=== PATIENT | female | born 1985 | race African-American/Black ===

== ENCOUNTER 2022-12-25 19:46 | Emergency (ER) | payer MEDICAID, OTHER, SELFPAY ==
[2022-12-25 20:08] VITALS: BP 116/69; PULSE 98; RESP 16; TEMP 37.9; O2SAT 98; BMI 23.6
--- NOTE | 2022-12-25 20:10 | ED_ITS ---
HPI - Skin/Abscess/Foreign Bdy General Chief complaint: Skin/Abscess/Foreign Body Stated complaint: cyst on back Time Seen by Provider: 12/25/22 20:13 Source: patient Mode of arrival: ambulatory Limitations: no limitations History of Present Illness HPI narrative: 37 yo female with no medical history here with painful growth to left upper back x years with no known injury or trauma. NO fevers, chills, redness, warmth, drainage Review of Systems Review of Systems: Yes all other systems are reviewed and are negative Constitutional: Constitutional: Reports no additional constitutional complaints, Denies body ache(s), Denies chills, Denies fever(s), Denies headache(s) and Denies weakness Eyes: Eyes: Reports no additional eye complaints and Denies change in vision ENT: Reports system reviewed and no additional complaints, except as documented, Denies dizziness, Denies headache(s), Denies nasal congestion, Denies nasal discharge and Denies neck pain Cardiovascular: Cardiovascular: Reports no additional cardiovascular complaints, Denies chest pain, Denies leg edema and Denies dyspnea Respiratory: Respiratory: Reports no additional respiratory complaints, Denies cough and Denies dyspnea Gastrointestinal: Gastrointestinal: Reports no additional gastrointestinal complaints, Denies abdominal pain, Denies diarrhea, Denies nausea and Denies vomiting Genitourinary: Genitourinary: Reports no additional female genitourinary complaints and Denies urinary incontinence Musculoskeletal: Musculoskeletal: Reports no additional musculoskeletal complaints, Denies back pain, Denies arthralgias, Denies joint swelling, Denies neck pain, Denies numbness and Denies tingling Integumentary/Breasts: Skin/Breast: Reports system reviewed and no additional complaints, except as docu and Denies rash Neurologic: Reports system reviewed and no additional complaints, except as documented, Denies dizziness, Denies headache(s), Denies numbness, Denies tingling and Denies weakness [facility] Past Medical History Attestation statement: The following information was validated with the patient. Source: old records reviewed and nursing notes reviewed Physical Exam Vital Signs: Vital Signs: Last Vital Signs Temp 100.2 F 12/25/22 20:08 Pulse 98 12/25/22 20:08 Resp 16 12/25/22 20:08 BP 116/69 12/25/22 20:08 Pulse Ox 98 12/25/22 20:08 O2 Del Method Room Air 12/25/22 20:08 BMI result Body Mass Index 23.6 Const: General: cooperative, healthy appearing, comfortable and no acute distress Orientation/consciousness: patient oriented x3 Limitations: no limitations HEENT: Head: Yes normal to inspection Ears: hearing grossly normal bilaterally Eyes: General: appearance normal, both eyes and all related structures Neck: Neck: Yes normal visual inspection Chest: Chest palpation & inspection: normal inspection of the chest Resp: Effort & Inspection: normal respiratory effort Back/Spine/Pelvis: Other: To the left upper back there is a keloid present with no evidence of erythema, warmth, drainage Neuro: General: patient oriented x3 and moves all extremities Cognition (Neuro): normal cognition Gait exam (Neuro): Normal gait present Medical Decision Making Medical Decision Making MDM Narrative: 37 yo female with no medical history here with painful growth to left upper back x years with no known injury or trauma. NO fevers, chills, redness, warmth, drainage Exam c/w with keloid, no s/s of infection Differential Diagnosis Differential Diagnoses: The differential diagnosis associated with the presentation includes keloid no evidence of cellulitis, abscess Prescription Management I considered prescription management with: Antibiotic no signs of infection necessitating antibiotics Discharge Plan Discharge Clinical Impression: Keloid Patient Disposition: Home, Self-Care Instructions: Normal Exam (ED) Additional Instructions: This is a keloid which is a overgrowth of scar tissue Take motrin or tylenol for pain as needed Establish insurance and a PCP to follow-up with Referrals: ED Physician,Generic [Physician] - 1 week
== END 2022-12-25 20:49 | disposition home or self-care (01) ==
LOC: HO.ED 20:37
PROVIDERS: Emergency Provider Student in an Organized Health Care Education/Training Program
DX: L91.0 Hypertrophic scar (principal)
CPT/HCPCS: 99282

== ENCOUNTER 2023-03-22 18:08 | Emergency (ER) | payer MEDICAID, OTHER, SELFPAY ==
--- NOTE | ~2023-03-22 | CT_ITS ---
EXAMINATION: CT ABDOMEN AND PELVIS WITHOUT CONTRAST CLINICAL INFORMATION: Upper abdomen pain COMPARISON: None available. TECHNIQUE: Multidetector volumetric imaging was performed from the superior aspect of the liver through the pubic symphysis. Sagittal and coronal reformatted images were obtained on the technologist's workstation. This CT examination was performed using dose optimization techniques as appropriate, variously including the following: *Automated exposure control *Adjustment of mA and/or kV according to patient size (this includes techniques or standardized protocols for targeted exams where dose is matched to indication/reason for exam; i.e. extremities or head) *Use of iterative reconstruction technique DLP: 1210 mGy-cm FINDINGS: LUNG BASES: No suspicious abnormality in the visualized lower chest LIVER, GALLBLADDER, AND BILIARY TREE: There are multiple coarse calcifications in the liver perhaps related to previous granulomatous disease. These do not require specific imaging follow-up there is no opaque gallstone. No biliary dilation. PANCREAS: No large peripancreatic collection. SPLEEN: No suspicious abnormality ADRENAL GLANDS: Within normal limits KIDNEYS AND URETERS: There is no dilation of the urinary collecting system on either side. No suspicious renal mass BLADDER: The bladder is not fully distended. No suspicious focal abnormality. GASTROINTESTINAL TRACT: There is no localized pericolonic fat stranding. No disproportionate small bowel distention. The stomach is not well distended. ABDOMINAL WALL: No significant hernia is appreciated. LYMPH NODES: There are no measurably enlarged abdominal or pelvic lymph nodes. There is no significant free intraperitoneal fluid. VASCULAR: There is no abdominal aortic aneurysm PELVIC VISCERA: Somewhat bulky uterus. No suspicious abnormality. OSSEOUS STRUCTURES: No suspicious abnormality CT/CT abdomen pelvis wo IV con IMPRESSION: Study performed without contrast. No evidence of bowel obstruction or abscess. No evidence of urinary or biliary dilation. Fleischner guidelines were followed.
[2023-03-22 18:16] VITALS: BP 117/64; BP 140/86; PULSE 77; PULSE 79; RESP 16; TEMP 36.7; O2SAT 100; O2SAT 97
[2023-03-22 18:33] VITALS: BP 117/64; PULSE 79; RESP 16; TEMP 36.7; O2SAT 97
[2023-03-22 18:38] LABS: MANUAL DIFF FLAG NO
[2023-03-22 18:55] LABS: Alanine Aminotransferase 16 U/L (0-31); Albumin Level 4.3 g/dL (3.5-5.0); Alkaline Phosphatase 56 U/L (39-117); Anion Gap 14 (12-20); Aspartate Amino Transferase 18 U/L (5-31); Basophils Percent Auto 0.7 % (0-2); Bilirubin Direct 0.1 mg/dL (0.0-0.5); Bilirubin Total 0.4 mg/dL (0.0-1.0); Blood Urea Nitrogen 11 mg/dL (9-16); Calcium 9.6 mg/dL (8.4-10.2); Carbon Dioxide 25 mmol/L (22-29); Chloride 106 mmol/L (96-108); Creatinine Clr Calc Pharmacy 92.6; Eosinophils Absolute Auto 0.3 X10*3/uL (0.0-0.4); Estimated Glomerular Filt Rate > 60; Glucose Random 96 mg/dL (60-115); Hematocrit 40.8 % (37.0-47.0); Hemoglobin 13.4 g/dl (12.0-16.0); Imm Gran Abs Auto 0.01 X10*3/uL (0.00-0.03); Imm Gran Pct Auto 0.2 % (0.0-0.4); Lipase 33 U/L (8-78); Lymphocytes Absolute Auto 2.6 X10*3/uL (1.2-4.9); Lymphocytes Percent Auto 45.7 % (20-40); Mean Corpuscular HGB Conc 32.8 g/dl (31.0-35.0); Mean Corpuscular Hemoglobin 26.4 pg (27.0-33.0); Mean Corpuscular Volume 80.3 fL (80.0-98.0); Mean Platelet Volume 10.7 fL (9.4-12.3); Monocytes Absolute Auto 0.5 X10*3/uL (0.1-1.2); Monocytes Percent Auto 8.2 % (2-11); Neutrophils Absolute Auto 2.2 x10*3/uL (2.0-8.3); Neutrophils Percent Auto 39.2 % (45-73); Platelet Count 296 X10*3/uL (160-400); Potassium 3.9 mmol/L (3.3-5.1); Red Blood Count 5.08 X10*6/uL (4.20-5.50); Red Cell Distribution Width 12.7 % (11.0-16.0); Sodium 141 mmol/L (135-145); White Blood Count 5.7 X10*3/uL (4.8-10.8)
--- NOTE | 2023-03-22 19:24 | ED.ABDPAIN ---
HPI - Abdominal Pain General Chief Complaint: Abdominal Pain Stated Complaint: abd pain since this morning Time Seen by Provider: 03/22/23 18:23 Source: patient Mode of arrival: ambulatory Limitations: no limitations History of Present Illness HPI narrative: Patient no significant past medical history history of upper abdominal pain last year when she was in [place] country earlier today patient had banana and after that pain is constant in epigastric area with no nausea or vomiting stabbing pain does have history of gastritis no acid reflux lately Related Data Previous Rx's Medication Instructions Recorded pantoprazole 40 mg tablet,delayed 40 mg PO DAILY #90 tabs 03/22/23 release (Protonix) sucralfate 1 gram tablet 1 g PO BID #60 tabs 03/22/23 Allergies Allergy/AdvReac Type Severity Reaction Status Date / Time No Known Allergies Allergy Unverified 03/22/23 18:23 Review of Systems Review of Systems Yes all other systems are reviewed and are negative PMFSH Social History Social History Smoked in Last 30 Days: No Use of substances other than those prescribed or required for medical reasons: No Advance Directives: No Advance Directives Information Provided: No Patient : No Physical Exam ED Vital Signs: Vital Signs - 24 hr 03/22/23 18:16 03/22/23 18:33 03/22/23 19:55 Temperature 98.1 F 98.1 F 97.9 F Pulse Rate 79 79 74 Respiratory Rate 16 16 Blood Pressure 117/64 117/64 131/85 Pulse Oximetry 97 97 98 Oxygen Delivery Method Room Air Room Air Room Air BMI result Body Mass Index 30.0 Appearance: Alert. Oriented X3. No acute distress. Eyes: PERRLA, No Nystagmus no icterus or pallor ENT: Pharynx normal. Oral Mucosa moist Neck: Normal inspection. Neck supple. CVS: Normal heart rate and rhythm. Pulses normal. Respiratory: No respiratory distress. Equal air entry bilateral, no wheezing/rales/rhonchi Abdomen: Soft and tenderness in epigastric area Bowel sounds are present, no mass palpable, no CVA tenderness Skin: Skin warm and dry. Normal skin color. Normal skin turgor. Extremities: No lower extremity edema. No calf tenderness Neuro: Oriented X 3. No motor deficit. Medical Decision Making Medical Decision Making MDM Narrative: Patient has epigastric pain etiology not very clear labs were stable bedside ultrasound done which which was negative for gallstones will get CT scan for persistent pain Differential Diagnosis Differential Diagnoses: The differential diagnosis associated with the presentation includes Gastritis/gallstones Lab Data MDM Lab Attestation statement: I reviewed the patient's lab results. 03/22/23 18:32 03/22/23 18:32 Labs: Lab Results 03/22/23 Range/Units 18:32 WBC 5.7 (4.8-10.8) X10*3/uL RBC 5.08 (4.20-5.50) X10*6/uL Hgb 13.4 (12.0-16.0) g/dl Hct 40.8 (37.0-47.0) % MCV 80.3 (80.0-98.0) fL MCH 26.4 L (27.0-33.0) pg MCHC 32.8 (31.0-35.0) g/dl RDW 12.7 (11.0-16.0) % Plt Count 296 (160-400) X10*3/uL MPV 10.7 (9.4-12.3) fL Immature Gran % (Auto) 0.2 (0.0-0.4) % Neut % (Auto) 39.2 L (45-73) % Lymph % (Auto) 45.7 H (20-40) % [place] % (Auto) 8.2 (2-11) % Eos % (Auto) 6.0 H (0-4) % Baso % (Auto) 0.7 (0-2) % Lymph # (Auto) 2.6 (1.2-4.9) X10*3/uL [place] # (Auto) 0.5 (0.1-1.2) X10*3/uL Eos # (Auto) 0.3 (0.0-0.4) X10*3/uL Baso # (Auto) 0.0 (0.0-0.2) X10*3/uL Abs Immat Gran (auto) 0.01 (0.00-0.03) X10*3/uL Absolute Neuts (auto) 2.2 (2.0-8.3) x10*3/uL Absolute Nucleated RBC 0.000 (0.0-0.012) X10*3/uL Nucleated RBC % (auto) 0.0 (0.0-0.2) /100WBC Sodium 141 (135-145) mmol/L Potassium 3.9 (3.3-5.1) mmol/L Chloride 106 (96-108) mmol/L Carbon Dioxide 25 (22-29) mmol/L Anion Gap 14 (12-20) BUN 11 (9-16) mg/dL Creatinine 0.77 (0.5-1.4) mg/dL Estim Creat Clear Calc 92.6 Estimated GFR > 60 Random Glucose 96 (60-115) mg/dL Calcium 9.6 (8.4-10.2) mg/dL Total Bilirubin 0.4 (0.0-1.0) mg/dL Direct Bilirubin 0.1 (0.0-0.5) mg/dL AST 18 (5-31) U/L ALT 16 (0-31) U/L Alkaline Phosphatase 56 (39-117) U/L Total Protein 8.0 (6.5-8.0) g/dL Albumin 4.3 (3.5-5.0) g/dL Lipase 33 (8-78) U/L Beta HCG, Quant < 2 mIU/mL Independent Interpretation I performed an independent interpretation of an: CT Scan Radiology Impression Discussion of test interpretation with radiology: I have reviewed the radiologist's reading. Radiologist Impression: [place] [id number] CT Scan Report Signed Patient: Arcelia Angel MR#: [id number] : 1985 Acct:[id number] Age/Sex: 37 / F ADM Date: 03/22/23 Loc: .ED Attending Dr: Ordering Physician: Juan Antonio Rosales MD Date of Service: 03/22/23 Procedure(s): CT abdomen pelvis wo IV con Accession Number(s): [id number] cc: Physician,Unknown ; Juan Antonio Rosales MD~ EXAMINATION: CT ABDOMEN AND PELVIS WITHOUT CONTRAST CLINICAL INFORMATION: Upper abdomen pain COMPARISON: None available. TECHNIQUE: Multidetector volumetric imaging was performed from the superior aspect of the liver through the pubic symphysis. Sagittal and coronal reformatted images were obtained on the technologist's workstation. This CT examination was performed using dose optimization techniques as appropriate, variously including the following: *Automated exposure control *Adjustment of mA and/or kV according to patient size (this includes techniques or standardized protocols for targeted exams where dose is matched to indication/reason for exam; i.e. extremities or head) *Use of iterative reconstruction technique DLP: 1210 mGy-cm FINDINGS: LUNG BASES: No suspicious abnormality in the visualized lower chest LIVER, GALLBLADDER, AND BILIARY TREE: There are multiple coarse calcifications in the liver perhaps related to previous granulomatous disease. These do not require specific imaging follow-up there is no opaque gallstone. No biliary dilation. PANCREAS: No large peripancreatic collection. SPLEEN: No suspicious abnormality ADRENAL GLANDS: Within normal limits KIDNEYS AND URETERS: There is no dilation of the urinary collecting system on either side. No suspicious renal mass BLADDER: The bladder is not fully distended. No suspicious focal abnormality. GASTROINTESTINAL TRACT: There is no localized pericolonic fat stranding. No disproportionate small bowel distention. The stomach is not well distended. ABDOMINAL WALL: No significant hernia is appreciated. LYMPH NODES: There are no measurably enlarged abdominal or pelvic lymph nodes. There is no significant free intraperitoneal fluid. VASCULAR: There is no abdominal aortic aneurysm PELVIC VISCERA: Somewhat bulky uterus. No suspicious abnormality. OSSEOUS STRUCTURES: No suspicious abnormality CT/CT abdomen pelvis wo IV con IMPRESSION: Study performed without contrast. No evidence of bowel obstruction or abscess. No evidence of urinary or biliary dilation. Fleischner guidelines were followed. Medications Administered Discontinued Medications Generic Name Dose Route Start Last Admin Trade Name Freq PRN Reason Stop Dose Admin Al Hydroxide/Mg Hydroxide 30 ml 03/22/23 19:31 03/22/23 19:50 Magnesium Hydrox/Alum Hydrox 30 Ml Oral.Susp PO 03/22/23 19:32 30 ml ONCE ONE Administration Famotidine 20 mg 03/22/23 19:35 03/22/23 19:50 Famotidine/Pf 20 Mg/2 Ml Vial IVPUSH 03/22/23 19:36 20 mg ONCE ONE Administration Ketorolac Tromethamine 30 mg 03/22/23 19:35 03/22/23 19:50 Ketorolac Tromethamine 30 Mg/Ml Vial IVPUSH 03/22/23 19:36 30 mg ONCE ONE Administration Lidocaine HCl 15 ml 03/22/23 19:32 03/22/23 19:50 Lidocaine Hcl Viscous 2 % 15 Ml Solution MUCOUS MEM 03/22/23 19:33 15 ml ONCE ONE Administration Discharge Plan Discharge Clinical Impression: Acute gastritis Patient Disposition: Home, Self-Care Instructions: Gastritis (ED) Additional Instructions: Drink plenty of fluids Avoid fried food Take medication as prescribed Follow with GI for further evaluation including endoscopy Prescriptions: New pantoprazole [Protonix] 40 mg tablet,delayed release (DR/EC) 40 mg PO DAILY Qty: 90 0RF sucralfate 1 gram tablet 1 g PO BID Qty: 60 0RF Interventions: ED Discharge Assessment Last Done: 03/22/23 23:32 Discharge Date/Time: 03/22/23 23:33
[2023-03-22] MEDS: Ketorolac Tromethamine 30 MG/ML VIAL IVPUSH (19:50)
[2023-03-22] MEDS: Magnesium Hydrox/Alum Hydrox 30 ML ORAL.SUSP PO (19:50)
[2023-03-22] MEDS: Famotidine/PF 20 MG/2 ML VIAL IVPUSH (19:50)
[2023-03-22] MEDS: Lidocaine HCl Viscous 2 % 15 ML SOLUTION MUCOUS MEM (19:50)
[2023-03-22 19:55] VITALS: BP 131/85; PULSE 74; TEMP 36.6; O2SAT 98
[2023-03-22 20:44] LABS: HCG Quantitative < 2 mIU/mL
== END 2023-03-22 23:33 | disposition home or self-care (01) ==
PROVIDERS: Emergency Provider Internal Medicine
DX: K29.70 Gastritis, unspecified, without bleeding (principal); R10.10 Upper abdominal pain, unspecified; R10.13 Epigastric pain
CPT/HCPCS: 36415; 74176; 80048; 80076; 83690; 84702; 85025; 96374; 96375; 99284; J1885

== ENCOUNTER 2023-05-10 22:17 | Emergency (ER) | payer MEDICAID, OTHER, SELFPAY ==
--- NOTE | 2023-05-10 | ECG_ITS ---
Test Reason : SYNCOPE Blood Pressure : / mmHG Vent. Rate : 093 BPM Atrial Rate : 093 BPM P-R Int : 154 ms QRS Dur : 066 ms QT Int : 346 ms P-R-T Axes : 042 -03 020 degrees QTc Int : 430 ms Normal sinus rhythm Minimal voltage criteria for LVH, may be normal variant ( R in aVL ) Borderline ECG No previous ECGs available Referred By: Generic ED Physician Electronically Signed By:Morro Dawson
--- NOTE | ~2023-05-10 | US_ITS ---
EXAMINATION: US OBSTETRICAL ULTRASOUND CLINICAL INFORMATION: Pelvic pain and fever with positive home test COMPARISON: None available. LMP: 03/23/2023. Gestational age by maternal dates is 6 weeks 6 days. Estimated date of delivery by maternal dates is 12/28/2023. TECHNIQUE: Both transabdominal and endovaginal scanning was performed FINDINGS: The uterus is enlarged and contains 3 large fibroids measuring 3.0 x 2.6 x 3.1 cm at the left fundus, 3.4 x 2.9 x 3.3 cm at the right fundus and 2.9 x 2.1 x 2.2 cm in the right mid uterus. A gestational sac is not seen seen. The endometrium measures 2.1 cm in thickness and appears homogeneous. MATERNAL ADNEXA: The right maternal ovary measures 3.9 x 2.3 x 2.9 cm. A 2.1 cm probable corpus luteal cyst is present. The left maternal ovary measures 3.8 x 1.6 x 1.7 cm and appears normal. There is no significant maternal adnexal mass. No maternal pelvic ascites. US/US OB pelvic and transvaginal IMPRESSION: No intrauterine is identified at this time. Correlation with beta hCG levels is recommended, as nonvisualization of a gestational sac could be due to an early stage of . Alternatively, lack of an intrauterine gestational sac may also be seen with missed or ectopic , although no adnexal mass is seen to strongly suggest ectopic . 3 large uterine fibroids are present. Short-term sonographic follow-up and serial beta hCG levels are recommended to assess for development of an intrauterine gestational sac.
[2023-05-10 22:26] VITALS: BP 117/79; PULSE 96; RESP 16; TEMP 37.8; O2SAT 100; BMI 27.8
--- NOTE | 2023-05-10 23:00 | PC.NURSE ---
Pt A&Ox3, brought in from triage in a stretcher after ? syncopal episode. Pt reports feeling weak, unable to tolerate PO intake and unable to sleep x 1 month. Pt reports BAILEY since yesterday. Reports she took a home test and it was positive.
[2023-05-10 23:02] LABS: COVID-19 Test Negative (Negative); IDNOW Serial# 16C4AD1C; IDNOW Serial# 55D5AD1C; Influenza A Negative (Negative); Influenza B2 Negative (Negative)
[2023-05-10 23:05] LABS: MANUAL DIFF FLAG NO
--- NOTE | 2023-05-10 23:06 | ED_ITS ---
HPI - General Adult General Chief complaint: General Medical Stated complaint: Chest pain, syncope Time Seen by Provider: 05/10/23 22:27 Source: patient and family Mode of arrival: ambulatory History of Present Illness HPI narrative: 37-year-old female presents with complaints of feeling weak, racing heart and reports decreased oral intake and difficulty sleeping for the past month. Patient states that her LMP was 03/23/23 and reports a positive home test. Otherwise, she denies any nausea/vomiting/diarrhea or shortness of breath. Patient has not taken any analgesics but reports headache since yesterday. Otherwise, she denies any vaginal discharge, vaginal bleeding, loss of fluid, and denies any urinary symptoms other than frequency. Related Data Previous Rx's Medication Instructions Recorded pantoprazole 40 mg tablet,delayed 40 mg PO DAILY #90 tabs 03/22/23 release (Protonix) sucralfate 1 gram tablet 1 g PO BID #60 tabs 03/22/23 ondansetron 4 mg disintegrating 4 mg PO Q8H PRN nausea and 05/11/23 tablet vomiting 4 days #14 tabs Allergies Allergy/AdvReac Type Severity Reaction Status Date / Time No Known Allergies Allergy Verified 05/10/23 22:25 Review of Systems 2 Review of Systems: Pertinent positives and negatives as stated in HPI [facility] Past Medical History Source: nursing notes reviewed Onset Date is defined in the Problem List Problems that require an onset date and time if occurred within 24 hrs of arrival to the ED Aortic Dissection and Rupture; Neurologic impairment; Cardiopulmonary Arrest; Endotracheal Intubation; Insertion or Replacement of Mechanical Circulatory Assist Device Social History Social History Alcohol intake: never Advance Directives: No Advance Directives Information Provided: No Physical Exam ED Vital Signs: Vital Signs - 24 hr 05/10/23 22:26 05/11/23 00:19 05/11/23 00:19 Temperature 100.1 F Pulse Rate 96 92 108 H Respiratory Rate 16 Blood Pressure 117/79 120/70 112/79 Pulse Oximetry 100 Oxygen Delivery Method Room Air 05/11/23 00:19 Temperature Pulse Rate 116 H Respiratory Rate Blood Pressure 105/76 Pulse Oximetry Oxygen Delivery Method BMI result Body Mass Index 27.8 VITAL SIGNS: Reviewed. GENERAL: Well developed, well nourished, in no acute distress. HEAD: Normocephalic/atraumatic EYES: PERRLA, EOMI EARS: Ext canals without abnormality NOSE: Nares patent bilateral OROPHARYNX: no oral lesions noted, posterior pharynx clear NECK: Supple, no adenopathy LUNGS: Normal breath sounds. No adventitious sounds or accessory muscle use. SpO2<100> CARDIOVASCULAR: Regular rate and rhythm without noted murmurs ABDOMEN: Soft, non-tender, non-distended with bowel sounds. MUSCULOSKELETAL: No tenderness, deformities, or effusions noted on gross inspection. EXTREMITIES: No cyanosis, clubbing or edema. SKIN: Inspection of the skin reveals no rashes NEUROLOGIC: Alert and oriented x 4. Strength and sensation to light touch were grossly intact x 4. Medications Administered Generic Name Dose Route Start Last Admin Trade Name Freq PRN Reason Stop Dose Admin Sodium Chloride 1,000 mls @ 999 mls/hr 05/11/23 00:30 05/11/23 00:41 Ns IV 05/11/23 01:30 999 mls/hr .Q1H1M ROBERT Administration Discontinued Medications Generic Name Dose Route Start Last Admin Trade Name Freq PRN Reason Stop Dose Admin Acetaminophen 975 mg 05/10/23 23:11 05/11/23 00:20 Acetaminophen 325 Mg Tablet PO 05/10/23 23:12 975 mg ONCE ONE Administration Medical Decision Making Medical Decision Making [facility] Narrative: 2300: 37-year-old female with history and clinical presentation, DDX: , will rule out UTI/ectopic/IUP, viral illness. Patient given Tylenol. I reviewed all investigations and hematologic indices are negative for leukocytosis or left shift, there is no anemia or thrombocytopenia. Chemistry indices do not demonstrate any KELECHI and there is no evidence of electrolyte or liver enzyme derangements. Beta [id number]. Corresponding ultrasound with noted difficulty secondary to uterine fibroids, no evidence to suggest possible ectopic but reasonable recommendation is for repeat ultrasound and serial beta- hCGs. In addition, patient has no complaints of vaginal bleeding to otherwise suggest a missed . Patient noted to have positive orthostatics and suspect that she has an underlying viral illness with corresponding mild dehydration. Viral testing is negative for COVID-19/influenza. Urinalysis is negative you tire hematuria. Differential Diagnosis Differential Diagnoses: The differential diagnosis associated with the presentation includes Please see the discussion above Admission/Observation Consideration of admission/observation: Escalation of care including admission/observation considered Please see the discussion above Lab Data MDM Lab Attestation statement: I reviewed the patient's lab results. Please see the discussion above 05/10/23 23:02 05/10/23 23:02 Labs: Lab Results 05/10/23 05/10/23 05/10/23 Range/Units 22:39 23:02 23:45 WBC 6.9 (4.8-10.8) X10*3/uL RBC 4.89 (4.20-5.50) X10*6/uL Hgb 12.9 (12.0-16.0) g/dl Hct 38.4 (37.0-47.0) % MCV 78.5 L (80.0-98.0) fL MCH 26.4 L (27.0-33.0) pg MCHC 33.6 (31.0-35.0) g/dl RDW 12.3 (11.0-16.0) % Plt Count 252 (160-400) X10*3/uL MPV 10.1 (9.4-12.3) fL Immature Gran % (Auto) 0.3 (0.0-0.4) % Neut % (Auto) 50.0 (45-73) % Lymph % (Auto) 39.7 (20-40) % [place] % (Auto) 7.9 (2-11) % Eos % (Auto) 1.7 (0-4) % Baso % (Auto) 0.4 (0-2) % Lymph # (Auto) 2.8 (1.2-4.9) X10*3/uL [place] # (Auto) 0.6 (0.1-1.2) X10*3/uL Eos # (Auto) 0.1 (0.0-0.4) X10*3/uL Baso # (Auto) 0.0 (0.0-0.2) X10*3/uL Abs Immat Gran (auto) 0.02 (0.00-0.03) X10*3/uL Absolute Neuts (auto) 3.5 (2.0-8.3) x10*3/uL Absolute Nucleated RBC 0.000 (0.0-0.012) X10*3/uL Nucleated RBC % (auto) 0.0 (0.0-0.2) /100WBC Sodium 139 (135-145) mmol/L Potassium 4.2 (3.3-5.1) mmol/L Chloride 104 (96-108) mmol/L Carbon Dioxide 25 (22-29) mmol/L Anion Gap 14 (12-20) BUN 7 L (9-16) mg/dL Creatinine 0.79 (0.5-1.4) mg/dL Estim Creat Clear Calc 90.4 Estimated GFR > 60 Random Glucose 105 (60-115) mg/dL Calcium 9.9 (8.4-10.2) mg/dL Total Bilirubin 0.5 (0.0-1.0) mg/dL AST 20 (5-31) U/L ALT 14 (0-31) U/L Alkaline Phosphatase 52 (39-117) U/L Total Protein 8.0 (6.5-8.0) g/dL Albumin 4.3 (3.5-5.0) g/dL Beta HCG, Quant 7436 mIU/mL Urine Color Yellow Urine Appearance Clear Urine pH 6.0 (5.0-9.0) Ur Specific [place] <= 1.005 (1.005-1.025) Urine Protein Negative (Neg-Trace) mg/dL Urine Glucose (UA) Negative (Negative) mg/dL Urine Ketones Negative (Negative) mg/dL Urine Blood Negative (Negative) Urine Nitrite Negative (Negative) Ur Leukocyte Esterase Trace H (Negative) Urine RBC 0-2 (0-2) /HPF Urine WBC 0-5 (0-5) /HPF Ur Squamous Epith Cells 0-2 (0-2) /HPF Urine Bacteria None Seen (None Seen) Hyaline Casts 0-2 (0-2) /LPF COVID-19 (JACLYN) Negative (Negative) COVID-19 Clin Com See Note Influenza Type A (VIRAL) Negative (Negative) Influenza Type B (VIRAL) Negative (Negative) Influenza A & B Note See Note Blood Type B Positive Independent Interpretation I performed an independent interpretation of an: EKG Interpretation: Normal sinus rhythm, HR-93, no STEMI, PA/QRS/QTC is within normal limits. Radiology Impression Discussion of test interpretation with radiology: I have reviewed the radiologist's reading. Radiologist Impression: Please see the discussion above Discharge Plan Discharge Clinical Impression: Patient Disposition: Home, Self-Care Instructions: (ED) Additional Instructions: 1. You will need a repeat ultrasound in 1 week as well as repeated levels. 2. You need to continue to drink plenty of water. 3. Start taking vitamins, these are available in all [facility], you can ask the pharmacist. 4. Please call the office of the general maintenance helper in the morning. The contact information is below. Return to the ER if they cannot see you in a week or you begin having worsening symptoms. Prescriptions: New ondansetron 4 mg tablet,disintegrating 4 mg PO Q8H PRN (Reason: nausea and vomiting) 4 Days Qty: 14 0RF No Action pantoprazole [Protonix] 40 mg tablet,delayed release (DR/EC) 40 mg PO DAILY Qty: 90 0RF sucralfate 1 gram tablet 1 g PO BID Qty: 60 0RF Referrals: Soren Taveras MD [Physician] -
[2023-05-10 23:07] LABS: Basophils Percent Auto 0.4 % (0-2); Eosinophils Absolute Auto 0.1 X10*3/uL (0.0-0.4); Eosinophils Percent Auto 1.7 % (0-4); Hematocrit 38.4 % (37.0-47.0); Hemoglobin 12.9 g/dl (12.0-16.0); Imm Gran Abs Auto 0.02 X10*3/uL (0.00-0.03); Imm Gran Pct Auto 0.3 % (0.0-0.4); Lymphocytes Absolute Auto 2.8 X10*3/uL (1.2-4.9); Lymphocytes Percent Auto 39.7 % (20-40); Mean Corpuscular HGB Conc 33.6 g/dl (31.0-35.0); Mean Corpuscular Hemoglobin 26.4 pg (27.0-33.0); Mean Corpuscular Volume 78.5 fL (80.0-98.0); Mean Platelet Volume 10.1 fL (9.4-12.3); Monocytes Absolute Auto 0.6 X10*3/uL (0.1-1.2); Monocytes Percent Auto 7.9 % (2-11); Neutrophils Absolute Auto 3.5 x10*3/uL (2.0-8.3); Platelet Count 252 X10*3/uL (160-400); Red Blood Count 4.89 X10*6/uL (4.20-5.50); Red Cell Distribution Width 12.3 % (11.0-16.0); White Blood Count 6.9 X10*3/uL (4.8-10.8)
--- NOTE | 2023-05-10 23:30 | PC.NURSE ---
Pt ambulate to the BR independently with steady gait.
[2023-05-10 23:31] LABS: Alanine Aminotransferase 14 U/L (0-31); Albumin Level 4.3 g/dL (3.5-5.0); Alkaline Phosphatase 52 U/L (39-117); Anion Gap 14 (12-20); Aspartate Amino Transferase 20 U/L (5-31); Bilirubin Total 0.5 mg/dL (0.0-1.0); Blood Urea Nitrogen 7 mg/dL (9-16); Calcium 9.9 mg/dL (8.4-10.2); Carbon Dioxide 25 mmol/L (22-29); Chloride 104 mmol/L (96-108); Creatinine Clr Calc Pharmacy 90.4; Estimated Glomerular Filt Rate > 60; Glucose Random 105 mg/dL (60-115); HCG Quantitative 7436 mIU/mL; Potassium 4.2 mmol/L (3.3-5.1); Sodium 139 mmol/L (135-145)
[2023-05-10 23:56] LABS: Appearance Urine Clear; Color Urine Yellow; Glucose Urine UA Negative (Negative); Leukocyte Esterase Urine Trace (Negative); Nitrite Urine Negative (Negative); Specific Gravity - Urine <= 1.005 (1.005-1.025); UMIC TRIGGER UACC YES; Urine Blood Negative (Negative); Urine Ketones Negative (Negative); Urine Protein Negative (Neg-Trace)
[2023-05-10 23:59] LABS: Bacteria Urine None Seen (None Seen); Hyaline Casts Urine 0-2 /LPF (0-2); RBC Urine 0-2 /HPF (0-2); Squamous Epithelial Cell Urine 0-2 /HPF (0-2); WBC Urine 0-5 /HPF (0-5)
[2023-05-11 00:19] VITALS: BP 105/76; BP 112/79; BP 120/70; PULSE 108; PULSE 116; PULSE 92
[2023-05-11] MEDS: Acetaminophen 325 MG TABLET 975 MG PO (00:20)
[2023-05-11] MEDS: 0.9 % Sodium Chloride 1,000 ML 999 ML IV (00:41)
[2023-05-11 02:00] VITALS: BP 118/75; PULSE 103; RESP 18; TEMP 37.3; O2SAT 99
== END 2023-05-11 02:02 | disposition home or self-care (01) ==
PROVIDERS: Emergency Provider Student in an Organized Health Care Education/Training Program
DX: R07.89 Other chest pain (principal); R55 Syncope and collapse; R10.2 Pelvic and perineal pain; R50.9 Fever, unspecified; Z11.52 Encounter for screening for COVID-19; Z79.899 Other long term (current) drug therapy
CPT/HCPCS: 36415; 76801; 76817; 80053; 81001; 84702; 85025; 86900; 86901; 87502; 87635; 93005; 96360; 99284; 99285

== ENCOUNTER → 2023-05-10 22:52 | Outpatient (BNV) | payer SELFPAY | PROVIDERS: Emergency Provider Student in an Organized Health Care Education/Training Program; Visit Provider Internal Medicine Cardiovascular Disease | DX: R07.9 Chest pain, unspecified (principal); R55 Syncope and collapse | CPT/HCPCS: 93010 ==

== ENCOUNTER 2023-05-17 16:19 | Day surgery (SDC) | payer MEDICAID, OTHER, SELFPAY ==
[2023-05-17] VITALS (12 sets, daily range): BP systolic 101–145; BP diastolic 63–88; PULSE 79–108; RESP 16–18; TEMP 36.4–36.9; O2SAT 96–100; BMI 26.6
--- NOTE | ~2023-05-17 | US_ITS ---
EXAMINATION: US OBSTETRICAL ULTRASOUND HISTORY: Threatened . TECHNIQUE: The pelvis was examined via transabdominal and transvaginal approaches. Garcia-scale imaging was performed, with color Doppler and spectral Doppler supplementation. COMPARISON: 05/10/2023. FINDINGS: The study is somewhat limited by patient body habitus and probable uterine fibroid. The uterus measures 9.1 x 4.9 x 5.9 cm. Findings suggest a fibroid uterus, with the largest located in the body of uterus anteriorly and measuring approximately 3.5 cm. The cervix is not measured. An intrauterine gestational sac is not identified. The left ovary measures 2.1 x 1.4 x 1.6 cm. Suspect a 2.3 x 2.2 x 1.7 cm left adnexal mass with central fluid. This central fluid may contain a yolk sac within. There is a question of a pole measuring 0.3 cm in crown-rump length, which correspond with a gestational age of 6 weeks 0 days. There is a suggestion of a heart beat and 1 28 bpm. The right ovary measures 2.8 x 2.2 x 2.7 cm. It may contain a 1.8 cm corpus luteum. No free fluid is seen in the pelvis. US/US OB pelvic and transvaginal IMPRESSION: Limited study. Suspect left adnexal ectopic , as detailed above. Fibroid uterus. was directly informed of the findings by telephone at approximately 6:20 PM on 05/17/2023.
--- NOTE | 2023-05-17 16:30 | ED.GENADULT ---
HPI - General Adult General Chief complaint: General Medical Stated complaint: medication check? Time Seen by Provider: 05/17/23 17:16 Source: patient Mode of arrival: ambulatory Limitations: no limitations History of Present Illness HPI narrative: Patient primi had LMP on 03/23 was seen here 05/10 for palpitation noted to be hCG level was 7436 ultrasound was done which shows no IUP patient was asked by Ob to have it reevaluated renal ultrasound patient denies any vaginal bleed complaining of diffuse suprapubic discomfort Related Data Previous Rx's Medication Instructions Recorded pantoprazole 40 mg tablet,delayed 40 mg PO DAILY #90 tabs 03/22/23 release (Protonix) sucralfate 1 gram tablet 1 g PO BID #60 tabs 03/22/23 ondansetron 4 mg disintegrating 4 mg PO Q8H PRN nausea and 05/11/23 tablet vomiting 4 days #14 tabs nitrofurantoin 100 mg PO Q12H 5 days #10 caps 05/17/23 monohydrate/macrocrystals 100 mg capsule (Macrobid) oxycodone 5 mg capsule 5 mg PO BEDTIME PRN pain #14 caps 05/19/23 Allergies Allergy/AdvReac Type Severity Reaction Status Date / Time No Known Allergies Allergy Verified 05/19/23 17:10 Review of Systems Review of Systems: Yes all other systems are reviewed and are negative [facility] Past Medical History Medical History (Updated 05/20/23 @ 00:02 by Minh Guerrero) Ectopic , tubal Surgical History (Updated 05/19/23 @ 21:49 by Verónica Marrero MD) History of salpingectomy Social History Social History Alcohol intake: never Comment: counts correct Smoked in Last 30 Days: No Use of substances other than those prescribed or required for medical reasons: No Advance Directives: No Advance Directives Information Provided: No Physical Exam ED Vital Signs: Vital Signs - 24 hr 05/17/23 16:25 05/17/23 17:59 05/17/23 19:35 Temperature 97.6 F 98.0 F 98.5 F Pulse Rate 79 88 87 Respiratory Rate 18 16 16 Blood Pressure 107/65 115/74 116/67 Pulse Oximetry 98 100 98 Oxygen Delivery Method Room Air Room Air BMI result Body Mass Index 26.6 Appearance: Alert. Oriented X3. No acute distress. Neck: Normal inspection. Neck supple. CVS: Normal heart rate and rhythm. Pulses normal. Respiratory: No respiratory distress. Equal air entry bilateral, Abdomen: Soft mild tenderness left lower abdomen , guarding++, no rebound tenderness, Skin: Skin warm and dry. Normal skin color. Normal skin turgor. Extremities: No lower extremity edema. No calf tenderness neuro : Alert oriented x3 no focal deficits Course Course Course Narrative: RME: 37-year-old female presents to ED for repeat beta HCG and ultrasound as recommended by OBGYN. Patient presently asymptomatic. Patient was seen on the was found to be with a beta HCG of 7000 without any IUP. Patient was informed comes to the ED for repeat. Labs ultrasound noted. Medications Administered Discontinued Medications Generic Name Dose Route Start Last Admin Trade Name Freq PRN Reason Stop Dose Admin Fentanyl 25 mcg 05/17/23 20:07 05/17/23 22:35 Fentanyl Citrate/Pf 100 Mcg/2 Ml Vial IVPUSH 25 mcg Q5M PRN Administration Pain, Moderate(Pain Scale 4-6) Protocol Sodium Chloride 1,000 mls @ 999 mls/hr 05/17/23 18:10 05/17/23 20:08 Ns IV 05/17/23 19:10 Infused .Q1H1M ONE Infusion Ceftriaxone Sodium 1 gm/ 50 mls @ 100 mls/hr 05/17/23 19:18 05/17/23 20:08 Sodium Chloride IV 05/17/23 19:47 Infused ONCE ONE Infusion Acetaminophen 1,000 mg in 100 mls @ 400 mls/hr 05/17/23 20:07 05/17/23 22:36 Ofirmev IV 05/17/23 20:21 400 mls/hr ONCE ONE Administration Oxycodone HCl 5 mg 05/17/23 23:18 05/17/23 23:32 Oxycodone Hcl Immed Release 5 Mg Tablet PO 5 mg ONCE PRN Administration Pain, Severe (Pain Scale 7-10) Medical Decision Making Medical Decision Making [facility] Narrative: Patient primi LMP 03/23/23 hCG was 7436 on 05/10 [place] [address] with no IUP mass in left adnexal area size 2.3 x 2.2 x 1.7 may continue yolk sac and pole with heartbeat of 128 gestational age about 6 weeks case discussed with Dr. 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 Lab Attestation statement: I reviewed the patient's lab results. 05/17/23 16:39 05/17/23 16:39 Labs: Lab Results 05/17/23 05/17/23 05/17/23 Range/Units 16:39 18:04 18:05 WBC 5.2 (4.8-10.8) X10*3/uL RBC 4.89 (4.20-5.50) X10*6/uL Hgb 12.8 (12.0-16.0) g/dl Hct 39.2 (37.0-47.0) % MCV 80.2 (80.0-98.0) fL MCH 26.2 L (27.0-33.0) pg MCHC 32.7 (31.0-35.0) g/dl RDW 12.5 (11.0-16.0) % Plt Count 253 (160-400) X10*3/uL MPV 10.2 (9.4-12.3) fL Immature Gran % (Auto) 0.2 (0.0-0.4) % Neut % (Auto) 46.8 (45-73) % Lymph % (Auto) 40.5 H (20-40) % [place] % (Auto) 9.2 (2-11) % Eos % (Auto) 2.7 (0-4) % Baso % (Auto) 0.6 (0-2) % Lymph # (Auto) 2.1 (1.2-4.9) X10*3/uL [place] # (Auto) 0.5 (0.1-1.2) X10*3/uL Eos # (Auto) 0.1 (0.0-0.4) X10*3/uL Baso # (Auto) 0.0 (0.0-0.2) X10*3/uL Abs Immat Gran (auto) 0.01 (0.00-0.03) X10*3/uL Absolute Neuts (auto) 2.4 (2.0-8.3) x10*3/uL Absolute Nucleated RBC 0.000 (0.0-0.012) X10*3/uL Nucleated RBC % (auto) 0.0 (0.0-0.2) /100WBC PT 12.1 (11.1-13.3) SEC INR 1.0 (0.9-1.1) APTT 32.0 (26.0-36.4) SEC Sodium 139 (135-145) mmol/L Potassium 3.8 (3.3-5.1) mmol/L Chloride 105 (96-108) mmol/L Carbon Dioxide 23 (22-29) mmol/L Anion Gap 15 (12-20) BUN 7 L (9-16) mg/dL Creatinine 0.79 (0.5-1.4) mg/dL Estim Creat Clear Calc 95.4 Estimated GFR > 60 Random Glucose 89 (60-115) mg/dL Calcium 10.0 (8.4-10.2) mg/dL Total Bilirubin 0.4 (0.0-1.0) mg/dL AST 20 (5-31) U/L ALT 19 (0-31) U/L Alkaline Phosphatase 50 (39-117) U/L Total Protein 7.8 (6.5-8.0) g/dL Albumin 4.4 (3.5-5.0) g/dL Beta HCG, Quant 72085 mIU/mL Urine Color Yellow Urine Appearance Turbid Urine pH 6.0 (5.0-9.0) Ur Specific [place] <= 1.005 (1.005-1.025) Urine Protein Negative (Neg-Trace) mg/dL Urine Glucose (UA) Negative (Negative) mg/dL Urine Ketones Negative (Negative) mg/dL Urine Blood Negative (Negative) Urine Nitrite Negative (Negative) Ur Leukocyte Esterase Moderate (2+) H (Negative) Urine RBC 0-2 (0-2) /HPF Urine WBC 11-20 H (0-5) /HPF Ur Squamous Epith Cells >20 (0-2) /HPF Urine Bacteria 2+ (None Seen) Hyaline Casts 0-2 (0-2) /LPF Urine Test POSITIVE H (NEGATIVE) Blood Type B Positive Antibody Screen NEGATIVE Independent Interpretation I performed an independent interpretation of an: Ultrasound Radiology Impression Discussion of test interpretation with radiology: I have reviewed the radiologist's reading. Radiologist Impression: [address] [address] Ultrasound Report Signed Patient: Arcelia Angel MR#: [id number] : 1985 Acct:[id number] Age/Sex: 37 / F ADM Date: 05/17/23 Loc: HO.ED Attending Dr: Ordering Physician: Sunny Gonzalez Date of Service: 05/17/23 Procedure(s): US OB pelvic and transvaginal Accession Number(s): [id number] cc: Sunny Gonzalez; Physician,Unknown ~ EXAMINATION: US OBSTETRICAL ULTRASOUND HISTORY: Threatened . TECHNIQUE: The pelvis was examined via transabdominal and transvaginal approaches. Garcia-scale imaging was performed, with color Doppler and spectral Doppler supplementation. COMPARISON: 05/10/2023. FINDINGS: The study is somewhat limited by patient body habitus and probable uterine fibroid. The uterus measures 9.1 x 4.9 x 5.9 cm. Findings suggest a fibroid uterus, with the largest located in the body of uterus anteriorly and measuring approximately 3.5 cm. The cervix is not measured. An intrauterine gestational sac is not identified. The left ovary measures 2.1 x 1.4 x 1.6 cm. Suspect a 2.3 x 2.2 x 1.7 cm left adnexal mass with central fluid. This central fluid may contain a yolk sac within. There is a question of a pole measuring 0.3 cm in crown-rump length, which correspond with a gestational age of 6 weeks 0 days. There is a suggestion of a heart beat and 1 28 bpm. The right ovary measures 2.8 x 2.2 x 2.7 cm. It may contain a 1.8 cm corpus luteum. No free fluid is seen in the pelvis. US/US OB pelvic and transvaginal IMPRESSION: Limited study. Suspect left adnexal ectopic , as detailed above. Fibroid uterus. Critical Care Time Critical Care Time Critical Care Time: Yes Total Critical Care Time: 45 Attestation: The patient was critically ill with a high probability of imminent or life threatening deterioration. I spent greater than 50??minutes of discontinuous time evaluating the patient,delivering critical care at the bedside, discussing and evaluating pertinent data with consultants. Critical care time does not include time spent performing separately billable procedures or teaching. Total time spent performing critical care was 45???minutes. Discharge Plan Discharge Clinical Impression: Ectopic , tubal, UTI (urinary tract infection) Patient Disposition: Admitted As Inpatient Interventions: Admission Worksheet (ED) Last Done: 05/17/23 21:51 Discharge Date/Time: 05/17/23 21:52
[2023-05-17 16:43] LABS: MANUAL DIFF FLAG NO
[2023-05-17 16:48] LABS: Basophils Percent Auto 0.6 % (0-2); Eosinophils Absolute Auto 0.1 X10*3/uL (0.0-0.4); Eosinophils Percent Auto 2.7 % (0-4); Hematocrit 39.2 % (37.0-47.0); Hemoglobin 12.8 g/dl (12.0-16.0); Imm Gran Abs Auto 0.01 X10*3/uL (0.00-0.03); Imm Gran Pct Auto 0.2 % (0.0-0.4); Lymphocytes Absolute Auto 2.1 X10*3/uL (1.2-4.9); Lymphocytes Percent Auto 40.5 % (20-40); Mean Corpuscular HGB Conc 32.7 g/dl (31.0-35.0); Mean Corpuscular Hemoglobin 26.2 pg (27.0-33.0); Mean Corpuscular Volume 80.2 fL (80.0-98.0); Mean Platelet Volume 10.2 fL (9.4-12.3); Monocytes Absolute Auto 0.5 X10*3/uL (0.1-1.2); Monocytes Percent Auto 9.2 % (2-11); Neutrophils Absolute Auto 2.4 x10*3/uL (2.0-8.3); Neutrophils Percent Auto 46.8 % (45-73); Platelet Count 253 X10*3/uL (160-400); Red Blood Count 4.89 X10*6/uL (4.20-5.50); Red Cell Distribution Width 12.5 % (11.0-16.0); White Blood Count 5.2 X10*3/uL (4.8-10.8)
[2023-05-17 17:03] LABS: Prothrombin Time 12.1 SEC (11.1-13.3)
[2023-05-17 17:20] LABS: Alanine Aminotransferase 19 U/L (0-31); Albumin Level 4.4 g/dL (3.5-5.0); Alkaline Phosphatase 50 U/L (39-117); Anion Gap 15 (12-20); Aspartate Amino Transferase 20 U/L (5-31); Bilirubin Total 0.4 mg/dL (0.0-1.0); Blood Urea Nitrogen 7 mg/dL (9-16); Carbon Dioxide 23 mmol/L (22-29); Chloride 105 mmol/L (96-108); Creatinine Clr Calc Pharmacy 95.4; Estimated Glomerular Filt Rate > 60; Glucose Random 89 mg/dL (60-115); Potassium 3.8 mmol/L (3.3-5.1); Sodium 139 mmol/L (135-145); Total Protein 7.8 g/dL (6.5-8.0)
[2023-05-17 17:37] LABS: HCG Quantitative 21085 mIU/mL
--- NOTE | 2023-05-17 18:05 | MHC.EDTECH ---
Patient type and screen drawn ,and urine sample collected and sent to lab ,Vitals taken .
[2023-05-17 18:16] LABS: UPreg QC Valid YES; Urine Pregnancy POSITIVE (NEGATIVE)
[2023-05-17 18:16] LABS: Appearance Urine Turbid; Color Urine Yellow; Glucose Urine UA Negative (Negative); Leukocyte Esterase Urine Moderate (2+) (Negative); Nitrite Urine Negative (Negative); Specific Gravity - Urine <= 1.005 (1.005-1.025); UMIC TRIGGER UACC YES; Urine Blood Negative (Negative); Urine Ketones Negative (Negative); Urine Protein Negative (Neg-Trace)
--- NOTE | 2023-05-17 18:16 | PM.GYNCN ---
[facility] - CN: HPI Data of Consult Consult date: 05/17/23 Primary Care Provider: Unknown Physician Consult Narrative Narrative: I was consulted on Arcelia Angel who is a 37 year old female, LMP on 03/23 was seen in the emergency room on 05/10 for palpitation noted to be hCG level was 7436 ultrasound was done which shows no IUP, the patient was discharge by the ER provider to follow-up in outpatient clinic, the patient could not book an appointment presented emergency room for follow-up per discharge instructions, the patient denies any abdominal/pelvic pain except some suprapubic discomfort, no vaginal bleeding 05/10 hCG was 7438 [place] [address] Blood type B positive Pelvic ultrasound showed the following: The uterus measures 9.1 x 4.9 x 5.9 cm. Findings suggest a fibroid uterus, with the largest located in the body of uterus anteriorly and measuring approximately 3.5 cm. The cervix is not measured. An intrauterine gestational sac is not identified. The left ovary measures 2.1 x 1.4 x 1.6 cm. Suspect a 2.3 x 2.2 x 1.7 cm left adnexal mass with central fluid. This central fluid may contain a yolk sac within. There is a question of a pole measuring 0.3 cm in crown-rump length, which correspond with a gestational age of 6 weeks 0 days. There is a suggestion of a heart beat and 1 28 bpm. The right ovary measures 2.8 x 2.2 x 2.7 cm. It may contain a 1.8 cm corpus luteum. No free fluid is seen in the pelvis. cc:: CC: OB [facility] Social History Social History Alcohol intake: never Comment: counts correct Meds Allergies Allergy/AdvReac Type Severity Reaction Status Date / Time No Known Allergies Allergy Verified 05/17/23 16:30 Active Medications: Current Medications Sodium Chloride (Ns) 1,000 mls @ 999 mls/hr IV .Q1H1M ONE Stop: 05/17/23 19:10 [facility] Physical Exam Vitals Vital signs: Temp Pulse Resp BP Pulse Ox O2 Del Method 98.0 F 88 16 115/74 100 Room Air 05/17/23 17:59 05/17/23 17:59 05/17/23 17:59 05/17/23 17:59 05/17/23 17:59 05/17/23 16:25 BMI result Body Mass Index 26.6 Abdomen Auscultation/Inspection/Palpation: Normal bowel sounds, Soft, Non-distended and Tenderness (Mild left lower quadrant tenderness, no rebound or guarding) [facility] - Results Labs 05/17/23 16:39 05/17/23 16:39 Labs: Short CBC 05/17/23 Range/Units 16:39 WBC 5.2 (4.8-10.8) X10*3/uL Hgb 12.8 (12.0-16.0) g/dl Hct 39.2 (37.0-47.0) % Plt Count 253 (160-400) X10*3/uL BMP 05/17/23 16:39 Sodium 139 Potassium 3.8 Chloride 105 Carbon Dioxide 23 BUN 7 L Creatinine 0.79 Calcium 10.0 Liver Function 05/17/23 Range/Units 16:39 Total Bilirubin 0.4 (0.0-1.0) mg/dL AST 20 (5-31) U/L ALT 19 (0-31) U/L Alkaline Phosphatase 50 (39-117) U/L Albumin 4.4 (3.5-5.0) g/dL Imaging US - abdomen: Radiologist's impression: ITS Impressions Pelvic/Transvag US 05/17/23 17:38 IMPRESSION: Limited study. Suspect left adnexal ectopic , as detailed above. Fibroid uterus. was directly informed of the findings by telephone at approximately 6:20 PM on 05/17/2023. Assessment and Plan (1) Ectopic , tubal: Status: Acute Discussed with the patient her clinical scenario, ectopic with elevated hCG is 21,085 and positive heart rate, both being relative contraindication for methotrexate treatment because of high failure rate. Options of treatment were discussed with the patient including methotrexate treatment multidose regimen to improve the success rate with the relative lower failure rate All the pros and cons risks and benefits of this approach were discussed with the patient including but not limited to, failure rate of MTX especially high failure rate with elevated hCG and a positive heart rate; The 2nd option that was discussed with the patient included surgical management. All the pros and cons were discussed with the patient including the risks including but not limited to: Risk of bleeding, infection, possible injury to bladder, bowel, ureter, bladder, possible injury to vessels and need for blood transfusion with all its risks including HIV, hepatitis-B and C and other blood borne pathogens, possible negative impact on future fertility and keloid formation with her history of previous keloids from previous incisions. All questions answered, the patient verbalized understanding and decided to proceed with surgical management, laparoscopic salpingostomy possible partial/total salpingectom and signed the consent. Type and screen sent. (2) UTI (urinary tract infection): Status: Acute Urine culture sent, ceftriaxone dose given, will send the patient Macrobid 100 mg p.o. b.i.d. for 5 days (3) Keloid: Status: Inactive Discussed with the patient the possibility of keloid formation at the laparoscopy scars , the patient is aware of this potential risk and agrees with the plan to proceed with surgical management
[2023-05-17 18:22] LABS: Bacteria Urine 2+ (None Seen); Hyaline Casts Urine 0-2 /LPF (0-2); RBC Urine 0-2 /HPF (0-2); Squamous Epithelial Cell Urine >20 /HPF (0-2); UACC Culture Trigger YES
--- NOTE | 2023-05-17 18:24 | PC.NURSE ---
pt is a&ox 4 coming in with lower abd pain that has now resolved, reports being last period last month. 20 left ac, 20 right hand. last had juice at 3pm no food today.
[2023-05-17] MEDS: 0.9 % Sodium Chloride 1,000 ML 999 ML IV (18:38)
--- NOTE | 2023-05-17 19:13 | P.CONAN_ITS ---
[facility] Past Medical History Functional capacity: independent ambulation Patient : Yes Family History Family history of problems with anesthesia: No Surgical History History of Problems with Anesthesia: No Social History Social History Alcohol intake: never Meds Allergies Allergy/AdvReac Type Severity Reaction Status Date / Time No Known Allergies Allergy Verified 05/17/23 16:30 Exam Height,Weight and Vital Signs: Height 5 ft 5 in Weight 72.6 kg Last Vital Signs Temp 98.0 F 05/17/23 17:59 Pulse 88 05/17/23 17:59 Resp 16 05/17/23 17:59 BP 115/74 05/17/23 17:59 Pulse Ox 100 05/17/23 17:59 O2 Del Method Room Air 05/17/23 16:25 Pertinent Lab Results Pertinent Lab Results: Laboratory Tests 05/17/23 05/17/23 05/17/23 16:39 18:04 18:05 WBC 5.2 RBC 4.89 Hgb 12.8 Hct 39.2 MCV 80.2 MCH 26.2 L MCHC 32.7 RDW 12.5 Plt Count 253 MPV 10.2 Immature Gran % (Auto) 0.2 Neut % (Auto) 46.8 Lymph % (Auto) 40.5 H [place] % (Auto) 9.2 Eos % (Auto) 2.7 Baso % (Auto) 0.6 Lymph # (Auto) 2.1 [place] # (Auto) 0.5 Eos # (Auto) 0.1 Baso # (Auto) 0.0 Abs Immat Gran (auto) 0.01 Absolute Neuts (auto) 2.4 Absolute Nucleated RBC 0.000 Nucleated RBC % (auto) 0.0 PT 12.1 INR 1.0 APTT 32.0 Sodium 139 Potassium 3.8 Chloride 105 Carbon Dioxide 23 Anion Gap 15 BUN 7 L Creatinine 0.79 Estim Creat Clear Calc 95.4 Estimated GFR > 60 Random Glucose 89 Calcium 10.0 Total Bilirubin 0.4 AST 20 ALT 19 Alkaline Phosphatase 50 Total Protein 7.8 Albumin 4.4 Beta HCG, Quant 87183 Urine Color Yellow Urine Appearance Turbid Urine pH 6.0 Ur Specific [place] <= 1.005 Urine Protein Negative Urine Glucose (UA) Negative Urine Ketones Negative Urine Blood Negative Urine Nitrite Negative Ur Leukocyte Esterase Moderate (2+) H Urine RBC 0-2 Urine WBC 11-20 H Ur Squamous Epith Cells >20 Urine Bacteria 2+ Hyaline Casts 0-2 Urine Test POSITIVE H Blood Type B Positive Antibody Screen NEGATIVE Airway Mallampati Class: II TM Dist: >3cm Neck ROM: Full Heart: RRR Lungs: o CTA Assessment and Plan Assessment Anesthesia Assessment: Anesthesia Plan Discussed Final Anesthetic Review Family History of Problems with Anesthesia: No History of Problems with Anesthesia: No NPO: Yes ASA Class: II and Emergency Final Preanesthetic Review: Meds/Allgs Chart Reviewed, Consent Obtained/Reviewed and Anes Risks/Benef Reviewed Patient Risk: Low Procedure Risk: Low Anesthetic Plan Anesthetic Plan: GA Disposition: Standard PACU
[2023-05-17] MEDS: cefTRIAXone sodium 1 GM in 0.9 % Sodium Chloride 50 ML IV (19:23)
--- NOTE | 2023-05-17 19:51 | PC.NURSE ---
Gave report to OR nurse. Pt will be transported shortly
--- NOTE | 2023-05-17 21:48 | PM.OP ---
Brief Operative Note Date of Service: 05/17/23 Pre-op diagnosis: Left tubal with elevated hCG and stiff heart rate Post-op diagnosis: same (3 cm distended with bluish discoloration left fallopian tube with ectopic next to the cornual end) Procedure: Laparoscopic left partial salpingectomy Surgeon: Soren Taveras MD Anesthesia: GETA Was an Alterations Manager used for this Procedure?: No Estimated blood loss (mL): 0 Pathology: other (Left partial fallopian tube with ectopic ) Condition: stable Disposition: PACU
--- NOTE | 2023-05-17 21:50 | W.PM.OPN ---
Operative Note Operative Note Date of Service: 05/17/23 Narrative: PREOPERATIVE DIAGNOSIS:? Left tubal ectopic with elevated hCG and positive heart rate by ultrasound POSTOPERATIVE DIAGNOSIS:?3 cm left ecotpic filling up the proximal and of the fallopian tube with distended bluish discoloration Procedure: Left partial salpingectomy QBL: Minimal Anesthesia: GETA SURGEON:? Soren Taveras MD?? Material Handling Warehouse Supervisor:None Complications: None Pathology: Left partial Fallopian tubes?with ectopic DESCRIPTION OF PROCEDURE:?The patient was taken to the OR where general anesthesia was easily obtained. The patient was then prepped and draped in a sterile fashion and placed in dorsal lithotomy position. A speculum was introduced into the patient?s vagina for cervical visualization. a was introduced into the patient?s cervix. The single tooth tenaculum was then removed and hemostasis was assured?using pressure. a Wolff catheter?was inserted and clear urine started draining. Gloves were changed to clean ones. Attention was then drawn to the abdomen where a 10 mm longitudinal incision was done intra umbilical and carried down all the way to the fascia, which was tented?up using 2 Kamille clamps and was nicked in the midline and then extended on both end of the incision?, them using 2 pick?ups the peritoneum?was entered with Metzenbaum scissors and under direct visualization, a 10 mm Laird trocar was introduced into the patient?s abdomen. Once intraperitoneal placement was confirmed with direct visualization, pneumoperitoneum was started & was easily obtained.Then, two fingerbreadths above the pubic symphysis and towards the?right lower quadrant, under direct visualization, a 5 mm trocar was then introduced into the patient?s abdomen. and a 3rd one on the left?lower quadrant was placed?in a similar manner. The patient was placed in Trendelenburg position, Inspection revealed left tubal filling up the proximal end, next to the cornual end of the fallopian tube with distention and bluish discoloration, normal bilateral ovaries and normal right fallopian tube. Attention was then drawn to the left fallopian tube. Since the proximal end of the left fallopian tube was filled up with the ectopic , distended with bluish discoloration, the decision was made to proceed with partial salpingectomy instead of salpingostomy. The portion of the left fallopian tube filled with ectopic was then grasped and the distal and was incised from the mesosalpinx using ligasure device, using cautery for hemostasis and cutting afterwards a bite at a time all the way to the area medial to the edge of the ectopic of the left fallopian tube, cardinal and. Good hemostasis was noted from the left fallopian tube sites and the operative site. Specimen were then removed from the patient?s abdomen using endobag from the 10 mm trocar through the umbilicus. Copious irrigation was done. Once good hemostasis was noted from the patient?s abdomen, pneumoperitoneum was deflated and all trocars were removed. Infraumbilical fascia was closed with 0 Vicryl and interrupted suture. The skin was closed with 4-0 Vicryl. The Right and left?lower quadrant ports were closed with 0 Vicryl. Bupivicaine 0.25 10 cc were injected subcuticularly in the 3 incisions. Then speculum was put back in the vagina inspection revealed?hemostasis at the site of the tenaculum, the?sponge stick was removed?from the patient's vagina and Wolff was draining clear urine was taken out too. Sponge, lap and needle counts were correct x2. The patient was taken to the recovery room in stable condition.
[2023-05-17] MEDS: fentaNYL citrate/PF 100 MCG/2 ML VIAL 25 MCG IVPUSH ×2 (22:30→22:35)
[2023-05-17] MEDS: Acetaminophen 1,000 MG/100 ML PIGGYBACK 400 MG IV (22:36)
[2023-05-17] MEDS: oxyCODONE HCl Immed Release 5 MG TABLET PO (23:32)
[2023-05-18 00:11] VITALS: TEMP 36.6
== END 2023-05-18 00:36 | disposition home or self-care (01) ==
LOC: HO.ED 19:16 → HO.SSS 19:28
PROVIDERS: Physician Assistant; Emergency Provider Internal Medicine; Visit Provider Obstetrics & Gynecology
PROC: (CPT 59120; principal; 2023-05-17 19:30)
DX: O00.102 Left tubal pregnancy without intrauterine pregnancy (principal); O23.41 Unspecified infection of urinary tract in pregnancy, first trimester; N39.0 Urinary tract infection, site not specified; Z3A.01 Less than 8 weeks gestation of pregnancy; L91.0 Hypertrophic scar
CPT/HCPCS: 59120; 36415; 76801; 76817; 80053; 81001; 81025; 84702; 85025; 85610; 85730; 86850; 86900; 86901; 87086; 88302; 88305; 96361; 96365; 99285; J0131; J0665; J0696; J1100; J1885; J2250; J2405; J2704; J3010

== ENCOUNTER → 2023-05-17 19:27 | Outpatient (BNV) | payer SELFPAY | PROVIDERS: Emergency Provider Internal Medicine; Visit Provider Obstetrics & Gynecology | DX: O00.102 Left tubal pregnancy without intrauterine pregnancy (principal); N39.0 Urinary tract infection, site not specified; L91.0 Hypertrophic scar | CPT/HCPCS: 59120; 99283 ==

== ENCOUNTER 2023-05-19 16:56 | Emergency (ER) | payer MEDICAID, OTHER, SELFPAY ==
--- NOTE | ~2023-05-19 | CT_ITS ---
EXAMINATION: CT abdomen pelvis w IV con CLINICAL INFORMATION: Reason for Exam diffuse abd pain s/p L salpingectomy 2 days COMPARISON: Prior CT scan from 03/22/2023 TECHNIQUE: Multidetector volumetric imaging was performed from the superior aspect of the liver through the pubic symphysis 85 mL of Omnipaque 350 injected Sagittal and coronal reformatted images were obtained on the technologist's workstation. This CT examination was performed using dose optimization techniques as appropriate, variously including the following: *Automated exposure control *Adjustment of mA and/or kV according to patient size (this includes techniques or standardized protocols for targeted exams where dose is matched to indication/reason for exam; i.e. extremities or head) *Use of iterative reconstruction technique DLP: 741 mGy-cm FINDINGS: LOWER THORAX: Platelike atelectasis right and left lower lobes. HEPATOBILIARY: No focal hepatic lesions. No biliary ductal dilatation. GALLBLADDER: Gallbladder unremarkable. SPLEEN: Spleen is normal in size. PANCREAS: No focal mass or ductal dilatation. STOMACH AND GASTROINTESTINAL TRACT: Stomach is grossly unremarkable. There is no bowel distention or thickening. Appendix could not be identified might be obscured by crowding of bowel loops and lack of oral contrast, small bowel structure adjacent to the cecum felt to be terminal ileum. ADRENALS: No adrenal nodules. KIDNEYS/URETERS: No hydronephrosis, stones or solid mass lesions. URINARY BLADDER: Partially decompressed. PELVIC VISCERA: Uterus is bulky, possible uterine fibroids difficult to visualize on CT scan. PERITONEUM: No free air or fluid. LYMPH NODES: No lymphadenopathy. VASCULAR:Abdominal aorta normal in size, no aneurysm found. BONES, ABDOMINAL WALL AND SOFT TISSUES: Soft tissue swelling/scarring left lower quadrant and periumbilical region probably postsurgical, few air bubbles in the surgical bed and within the abdomen, in the immediate postoperative phase, only residual from recent surgery. CT/CT abdomen pelvis w IV con IMPRESSION: 1. Soft tissue swelling/scarring left lower quadrant and periumbilical region, few air bubbles in the surgical bed and within the abdomen, in the immediate postoperative phase, likely scarring or inflammation residual from recent surgery. 2. No CT evidence of bowel obstruction. 3. Bulky uterus, possible uterine fibroids. 4. Platelike atelectasis at lung bases.
[2023-05-19 17:05] VITALS: BP 120/84; PULSE 80; O2SAT 100
[2023-05-19 17:10] VITALS: BP 109/72; PULSE 79; RESP 18; TEMP 36.2; O2SAT 99; BMI 28.3
--- NOTE | 2023-05-19 17:45 | ECG_ITS ---
Test Reason : ABD PAIN Blood Pressure : / mmHG Vent. Rate : 085 BPM Atrial Rate : 085 BPM P-R Int : 160 ms QRS Dur : 068 ms QT Int : 366 ms P-R-T Axes : 042 -01 026 degrees QTc Int : 435 ms Normal sinus rhythm Normal ECG When compared with ECG of 10-MAY-2023 22:52, No significant change was found Referred By: Verónica Marrero Electronically Signed By:YANG BURLESON MD
[2023-05-19 18:12] VITALS: BP 113/72; PULSE 82; RESP 21; O2SAT 99
[2023-05-19] MEDS: 0.9 % Sodium Chloride 1,000 ML 999 ML IVCONT (18:34)
[2023-05-19 18:35] LABS: MANUAL DIFF FLAG NO
[2023-05-19] MEDS: Morphine Sulfate 4 MG/ML CARTRIDGE IVPUSH (18:35)
[2023-05-19 18:37] LABS: Basophils Percent Auto 0.3 % (0-2); Eosinophils Absolute Auto 0.1 X10*3/uL (0.0-0.4); Hematocrit 37.7 % (37.0-47.0); Hemoglobin 12.1 g/dl (12.0-16.0); Imm Gran Abs Auto 0.01 X10*3/uL (0.00-0.03); Imm Gran Pct Auto 0.1 % (0.0-0.4); Lymphocytes Absolute Auto 2.4 X10*3/uL (1.2-4.9); Lymphocytes Percent Auto 33.2 % (20-40); Mean Corpuscular HGB Conc 32.1 g/dl (31.0-35.0); Mean Corpuscular Hemoglobin 26.1 pg (27.0-33.0); Mean Corpuscular Volume 81.4 fL (80.0-98.0); Mean Platelet Volume 10.1 fL (9.4-12.3); Monocytes Absolute Auto 0.5 X10*3/uL (0.1-1.2); Neutrophils Absolute Auto 4.3 x10*3/uL (2.0-8.3); Neutrophils Percent Auto 58.4 % (45-73); Platelet Count 244 X10*3/uL (160-400); Red Blood Count 4.63 X10*6/uL (4.20-5.50); Red Cell Distribution Width 12.8 % (11.0-16.0); White Blood Count 7.3 X10*3/uL (4.8-10.8)
[2023-05-19 18:45] LABS: Lactic Acid 1.4 mmol/L (0.5-2.0)
[2023-05-19 18:51] LABS: Alanine Aminotransferase 22 U/L (0-31); Albumin Level 4.1 g/dL (3.5-5.0); Alkaline Phosphatase 46 U/L (39-117); Anion Gap 14 (12-20); Aspartate Amino Transferase 20 U/L (5-31); Bilirubin Direct 0.1 mg/dL (0.0-0.5); Bilirubin Total 0.4 mg/dL (0.0-1.0); Blood Urea Nitrogen 7 mg/dL (9-16); Calcium 9.3 mg/dL (8.4-10.2); Carbon Dioxide 22 mmol/L (22-29); Chloride 108 mmol/L (96-108); Creatinine Clr Calc Pharmacy 102.4; Estimated Glomerular Filt Rate > 60; Glucose Random 113 mg/dL (60-115); Lipase 38 U/L (8-78); Magnesium 2.3 mg/dL (1.6-2.6); Potassium 3.6 mmol/L (3.3-5.1); Sodium 140 mmol/L (135-145); Total Protein 7.5 g/dL (6.5-8.0)
[2023-05-19 18:58] LABS: HCG Quantitative 2039 mIU/mL; Troponin-I High Sensitivity 18.2 ng/L (<3.5-17.0)
--- NOTE | 2023-05-19 19:10 | ED_ITS ---
HPI - Abdominal Pain General Chief Complaint: Abdominal Pain Stated Complaint: abd pain, had ectopic surgery thursday Time Seen by Provider: 05/19/23 17:40 Source: patient Mode of arrival: ambulatory Limitations: no limitations History of Present Illness HPI narrative: Patient comes to the emergency room complaining of diffuse abdominal pain. Patient states that 2 days ago she had a surgery for an ectopic . Patient states that she has been in pain since then. Patient denies fever chills, no URI or UTI symptoms Related Data Previous Rx's Medication Instructions Recorded pantoprazole 40 mg tablet,delayed 40 mg PO DAILY #90 tabs 03/22/23 release (Protonix) sucralfate 1 gram tablet 1 g PO BID #60 tabs 03/22/23 ondansetron 4 mg disintegrating 4 mg PO Q8H PRN nausea and 05/11/23 tablet vomiting 4 days #14 tabs nitrofurantoin 100 mg PO Q12H 5 days #10 caps 05/17/23 monohydrate/macrocrystals 100 mg capsule (Macrobid) oxycodone 5 mg capsule 5 mg PO BEDTIME PRN pain #14 caps 05/19/23 Allergies Allergy/AdvReac Type Severity Reaction Status Date / Time No Known Allergies Allergy Verified 05/19/23 17:10 Review of Systems Review of Systems Constitutional : No Weight loss, No Fever, No Chills, No Night Sweats, No Fatigue, No Malaise ENT/Mouth : No Hearing loss, No Ear Pain, No Nasal Congestion, No Sinus Pain, No Hoarseness, No sore throat, No Rhinorrhea, No Swallowing Difficulty Eyes: No Eye Pain, No Swelling, No Redness, No Foreign Body, No Discharge, No Vision Changes Cardiovascular : No Chest Pain, No SOB, No Dyspnea on Exertion, No Orthopnea, No Edema, No Palpitations Respiratory : No Cough, No Sputum, No Wheezing, No Smoke Exposure, No Dyspnea Gastrointestinal : No Nausea, No Vomiting, No Diarrhea, No Constipation, complaining of diffuse abdominal pain Genitourinary : no irregular bleeding, No Dysuria, No Urinary Frequency, No Hematuria, No Urinary Incontinence, No Urgency, No Flank Pain, No Urinary Flow Changes, No Hesitancy Musculoskeletal : No joint pain, No Myalgias, No Joint Swelling Skin : No Skin Lesions, No rash Neuro : No Weakness, No Numbness, No Paresthesias, No Loss of Consciousness, No Dizziness, No Headache Psych : No Anxiety/Panic, No Depression, No SI/HI/AH/VH, No Social Issues, Heme/Lymph: No Bruising, No Bleeding,No Lymphadenopathy Endocrine : No Polyuria, No Polydipsia, No Temperature Intolerance [facility] Past Medical History Medical History (Updated 05/19/23 @ 21:54 by Verónica Marrero MD) Ectopic , tubal Surgical History (Updated 05/19/23 @ 21:49 by Verónica Marrero MD) History of salpingectomy Social History Social History Alcohol intake: never Comment: counts correct Smoked in Last 30 Days: No Use of substances other than those prescribed or required for medical reasons: No Advance Directives: No Advance Directives Information Provided: No Physical Exam ED Vital Signs: Vital Signs - 24 hr 05/19/23 17:10 05/19/23 18:12 05/19/23 21:14 Temperature 97.2 F 98.2 F Pulse Rate 79 82 88 Respiratory Rate 18 21 H 20 Blood Pressure 109/72 113/72 109/74 Pulse Oximetry 99 99 98 Oxygen Delivery Method Room Air Room Air Room Air BMI result Body Mass Index 28.3 Const Other: Appearance: Alert. Oriented X3. No acute distress. Eyes: Pupils equal, round and reactive to light. ENT: Pharynx normal. Neck: Normal inspection. Neck supple. No lymph nodes noted. No crepitus CVS: Normal heart rate and rhythm. Pulses normal. Normal S1 and S2 Respiratory: No respiratory distress. Breath sounds normal. No Wheezing. No rales Abdomen: Soft , mild distension, no guarding, no rebound, mother discomfort to palpation throughout the abdomen, surgical sites clean Skin: Skin warm and dry. Normal skin color. Normal skin turgor. Extremities: No lower extremity edema. No Lacerations. No Rash Neuro: Oriented X 3. No motor deficit. No sensory deficit. Moving all extremities. No slurred speech. CN 2 through 12 grossly intact Psych: calm, cooperative, normal affect Medical Decision Making Medical Decision Making MDM Narrative: My interpretation of labs: Normal hematology, normal white blood cell count, chemistry normal lactic acid normal LFTs normal. Beta hCG significantly [place] 27729 to 2000 in 48 hours -my interpretation CT scan of the abdomen pelvis: No obvious abnormality -patient given IV fluids, IV morphine -I discussed the above-mentioned with the patient, patient feeling better, ready for discharge. Patient having post surgical pain. -patient's states that 5 minutes before the patient arrived to the emergency room, he picked up patient's prescription of oxycodone in the pharmacy and has not had any medication for pain for the last 48 hours Differential Diagnosis Differential Diagnoses: The differential diagnosis associated with the presentation includes (Surgical complication, postop pain, abscess) Admission/Observation Consideration of admission/observation: Escalation of care including admission/observation considered (Given patient's history and presentation admission was considered) Lab Data MDM Lab Attestation statement: I reviewed the patient's lab results. 05/19/23 18:30 05/19/23 18:30 Labs: Lab Results 05/19/23 05/19/23 05/19/23 Range/Units 18:29 18:30 20:32 WBC 7.3 (4.8-10.8) X10*3/uL RBC 4.63 (4.20-5.50) X10*6/uL Hgb 12.1 (12.0-16.0) g/dl Hct 37.7 (37.0-47.0) % MCV 81.4 (80.0-98.0) fL MCH 26.1 L (27.0-33.0) pg MCHC 32.1 (31.0-35.0) g/dl RDW 12.8 (11.0-16.0) % Plt Count 244 (160-400) X10*3/uL MPV 10.1 (9.4-12.3) fL Immature Gran % (Auto) 0.1 (0.0-0.4) % Neut % (Auto) 58.4 (45-73) % Lymph % (Auto) 33.2 (20-40) % Banks % (Auto) 7.0 (2-11) % Eos % (Auto) 1.0 (0-4) % Baso % (Auto) 0.3 (0-2) % Lymph # (Auto) 2.4 (1.2-4.9) X10*3/uL Banks # (Auto) 0.5 (0.1-1.2) X10*3/uL Eos # (Auto) 0.1 (0.0-0.4) X10*3/uL Baso # (Auto) 0.0 (0.0-0.2) X10*3/uL Abs Immat Gran (auto) 0.01 (0.00-0.03) X10*3/uL Absolute Neuts (auto) 4.3 (2.0-8.3) x10*3/uL Absolute Nucleated RBC 0.000 (0.0-0.012) X10*3/uL Nucleated RBC % (auto) 0.0 (0.0-0.2) /100WBC Sodium 140 (135-145) mmol/L Potassium 3.6 (3.3-5.1) mmol/L Chloride 108 (96-108) mmol/L Carbon Dioxide 22 (22-29) mmol/L Anion Gap 14 (12-20) BUN 7 L (9-16) mg/dL Creatinine 0.73 (0.5-1.4) mg/dL Estim Creat Clear Calc 102.4 Estimated GFR > 60 Random Glucose 113 (60-115) mg/dL Lactic Acid 1.4 (0.5-2.0) mmol/L Calcium 9.3 D (8.4-10.2) mg/dL Magnesium 2.3 (1.6-2.6) mg/dL Total Bilirubin 0.4 (0.0-1.0) mg/dL Direct Bilirubin 0.1 (0.0-0.5) mg/dL AST 20 (5-31) U/L ALT 22 (0-31) U/L Alkaline Phosphatase 46 (39-117) U/L Troponin I High Sens 18.2 H (<3.5-17.0) ng/L Total Protein 7.5 (6.5-8.0) g/dL Albumin 4.1 (3.5-5.0) g/dL Lipase 38 (8-78) U/L Beta HCG, Quant 2039 mIU/mL Urine Color [place] A Urine Appearance Urine pH (5.0-9.0) Ur Specific [place] (1.005-1.025) Urine Protein (Neg-Trace) mg/dL Urine Glucose (UA) (Negative) mg/dL Urine Ketones (Negative) mg/dL Urine Blood (Negative) Urine Nitrite (Negative) Ur Leukocyte Esterase (Negative) Urine RBC (0-2) /HPF Urine WBC (0-5) /HPF Urine WBC Clumps Ur Squamous Epith Cells (0-2) /HPF Ur Transition Epith Cell Ur Renal Epithelial Cell Calcium Oxalate Crystal Leucine Crystals Cystine Crystals Tyrosine Crystals Other Crystals Urine Bacteria (None Seen) Urine Parasites Bilirubin Casts Epithelial Casts Fatty Casts Hyaline Casts (0-2) /LPF Granular Casts Waxy Casts Broad Casts RBC Casts WBC Casts Other Casts Urine Trichomonas Urine Yeast 05/19/23 05/19/23 05/19/23 Range/Units 20:32 20:32 20:32 WBC (4.8-10.8) X10*3/uL RBC (4.20-5.50) X10*6/uL Hgb (12.0-16.0) g/dl Hct (37.0-47.0) % MCV (80.0-98.0) fL MCH (27.0-33.0) pg MCHC (31.0-35.0) g/dl RDW (11.0-16.0) % Plt Count (160-400) X10*3/uL MPV (9.4-12.3) fL Immature Gran % (Auto) (0.0-0.4) % Neut % (Auto) (45-73) % Lymph % (Auto) (20-40) % Banks % (Auto) (2-11) % Eos % (Auto) (0-4) % Baso % (Auto) (0-2) % Lymph # (Auto) (1.2-4.9) X10*3/uL [place] # (Auto) (0.1-1.2) X10*3/uL Eos # (Auto) (0.0-0.4) X10*3/uL Baso # (Auto) (0.0-0.2) X10*3/uL Abs Immat Gran (auto) (0.00-0.03) X10*3/uL Absolute Neuts (auto) (2.0-8.3) x10*3/uL Absolute Nucleated RBC (0.0-0.012) X10*3/uL Nucleated RBC % (auto) (0.0-0.2) /100WBC Sodium (135-145) mmol/L Potassium (3.3-5.1) mmol/L Chloride (96-108) mmol/L Carbon Dioxide (22-29) mmol/L Anion Gap (12-20) BUN (9-16) mg/dL Creatinine (0.5-1.4) mg/dL Estim Creat Clear Calc Estimated GFR Random Glucose (60-115) mg/dL Lactic Acid (0.5-2.0) mmol/L Calcium (8.4-10.2) mg/dL Magnesium (1.6-2.6) mg/dL Total Bilirubin (0.0-1.0) mg/dL Direct Bilirubin (0.0-0.5) mg/dL AST (5-31) U/L ALT (0-31) U/L Alkaline Phosphatase (39-117) U/L Troponin I High Sens (<3.5-17.0) ng/L Total Protein (6.5-8.0) g/dL Albumin (3.5-5.0) g/dL Lipase (8-78) U/L Beta HCG, Quant mIU/mL Urine Color Cancelled Urine Appearance Clear Cancelled Urine pH 6.0 Cancelled (5.0-9.0) Ur Specific [place] 1.020 (1.005-1.025) Urine Protein (Neg-Trace) mg/dL Urine Glucose (UA) (Negative) mg/dL Urine Ketones (Negative) mg/dL Urine Blood (Negative) Urine Nitrite (Negative) Ur Leukocyte Esterase (Negative) Urine RBC (0-2) /HPF Urine WBC (0-5) /HPF Urine WBC Clumps Ur Squamous Epith Cells (0-2) /HPF Ur Transition Epith Cell Ur Renal Epithelial Cell Calcium Oxalate Crystal Leucine Crystals Cystine Crystals Tyrosine Crystals Other Crystals Urine Bacteria (None Seen) Urine Parasites Bilirubin Casts Epithelial Casts Fatty Casts Hyaline Casts (0-2) /LPF Granular Casts Waxy Casts Broad Casts RBC Casts WBC Casts Other Casts Urine Trichomonas Urine Yeast 05/19/23 05/19/23 05/19/23 Range/Units 20:32 20:32 20:32 WBC (4.8-10.8) X10*3/uL RBC (4.20-5.50) X10*6/uL Hgb (12.0-16.0) g/dl Hct (37.0-47.0) % MCV (80.0-98.0) fL MCH (27.0-33.0) pg MCHC (31.0-35.0) g/dl RDW (11.0-16.0) % Plt Count (160-400) X10*3/uL MPV (9.4-12.3) fL Immature Gran % (Auto) (0.0-0.4) % Neut % (Auto) (45-73) % Lymph % (Auto) (20-40) % Banks % (Auto) (2-11) % Eos % (Auto) (0-4) % Baso % (Auto) (0-2) % Lymph # (Auto) (1.2-4.9) X10*3/uL [place] # (Auto) (0.1-1.2) X10*3/uL Eos # (Auto) (0.0-0.4) X10*3/uL Baso # (Auto) (0.0-0.2) X10*3/uL Abs Immat Gran (auto) (0.00-0.03) X10*3/uL Absolute Neuts (auto) (2.0-8.3) x10*3/uL Absolute Nucleated RBC (0.0-0.012) X10*3/uL Nucleated RBC % (auto) (0.0-0.2) /100WBC Sodium (135-145) mmol/L Potassium (3.3-5.1) mmol/L Chloride (96-108) mmol/L Carbon Dioxide (22-29) mmol/L Anion Gap (12-20) BUN (9-16) mg/dL Creatinine (0.5-1.4) mg/dL Estim Creat Clear Calc Estimated GFR Random Glucose (60-115) mg/dL Lactic Acid (0.5-2.0) mmol/L Calcium (8.4-10.2) mg/dL Magnesium (1.6-2.6) mg/dL Total Bilirubin (0.0-1.0) mg/dL Direct Bilirubin (0.0-0.5) mg/dL AST (5-31) U/L ALT (0-31) U/L Alkaline Phosphatase (39-117) U/L Troponin I High Sens (<3.5-17.0) ng/L Total Protein (6.5-8.0) g/dL Albumin (3.5-5.0) g/dL Lipase (8-78) U/L Beta HCG, Quant mIU/mL Urine Color Urine Appearance Urine pH (5.0-9.0) Ur Specific [place] Cancelled (1.005-1.025) Urine Protein 30 (1+) H Cancelled (Neg-Trace) mg/dL Urine Glucose (UA) Negative Cancelled (Negative) mg/dL Urine Ketones Negative (Negative) mg/dL Urine Blood (Negative) Urine Nitrite (Negative) Ur Leukocyte Esterase (Negative) Urine RBC (0-2) /HPF Urine WBC (0-5) /HPF Urine WBC Clumps Ur Squamous Epith Cells (0-2) /HPF Ur Transition Epith Cell Ur Renal Epithelial Cell Calcium Oxalate Crystal Leucine Crystals Cystine Crystals Tyrosine Crystals Other Crystals Urine Bacteria (None Seen) Urine Parasites Bilirubin Casts Epithelial Casts Fatty Casts Hyaline Casts (0-2) /LPF Granular Casts Waxy Casts Broad Casts RBC Casts WBC Casts Other Casts Urine Trichomonas Urine Yeast 05/19/23 05/19/23 05/19/23 Range/Units 20:32 20:32 20:32 WBC (4.8-10.8) X10*3/uL RBC (4.20-5.50) X10*6/uL Hgb (12.0-16.0) g/dl Hct (37.0-47.0) % MCV (80.0-98.0) fL MCH (27.0-33.0) pg MCHC (31.0-35.0) g/dl RDW (11.0-16.0) % Plt Count (160-400) X10*3/uL MPV (9.4-12.3) fL Immature Gran % (Auto) (0.0-0.4) % Neut % (Auto) (45-73) % Lymph % (Auto) (20-40) % Banks % (Auto) (2-11) % Eos % (Auto) (0-4) % Baso % (Auto) (0-2) % Lymph # (Auto) (1.2-4.9) X10*3/uL [place] # (Auto) (0.1-1.2) X10*3/uL Eos # (Auto) (0.0-0.4) X10*3/uL Baso # (Auto) (0.0-0.2) X10*3/uL Abs Immat Gran (auto) (0.00-0.03) X10*3/uL Absolute Neuts (auto) (2.0-8.3) x10*3/uL Absolute Nucleated RBC (0.0-0.012) X10*3/uL Nucleated RBC % (auto) (0.0-0.2) /100WBC Sodium (135-145) mmol/L Potassium (3.3-5.1) mmol/L Chloride (96-108) mmol/L Carbon Dioxide (22-29) mmol/L Anion Gap (12-20) BUN (9-16) mg/dL Creatinine (0.5-1.4) mg/dL Estim Creat Clear Calc Estimated GFR Random Glucose (60-115) mg/dL Lactic Acid (0.5-2.0) mmol/L Calcium (8.4-10.2) mg/dL Magnesium (1.6-2.6) mg/dL Total Bilirubin (0.0-1.0) mg/dL Direct Bilirubin (0.0-0.5) mg/dL AST (5-31) U/L ALT (0-31) U/L Alkaline Phosphatase (39-117) U/L Troponin I High Sens (<3.5-17.0) ng/L Total Protein (6.5-8.0) g/dL Albumin (3.5-5.0) g/dL Lipase (8-78) U/L Beta HCG, Quant mIU/mL Urine Color Urine Appearance Urine pH (5.0-9.0) Ur Specific [place] (1.005-1.025) Urine Protein (Neg-Trace) mg/dL Urine Glucose (UA) (Negative) mg/dL Urine Ketones Cancelled (Negative) mg/dL Urine Blood Large (3+) H Cancelled (Negative) Urine Nitrite Negative Cancelled (Negative) Ur Leukocyte Esterase Moderate (2+) H (Negative) Urine RBC (0-2) /HPF Urine WBC (0-5) /HPF Urine WBC Clumps Ur Squamous Epith Cells (0-2) /HPF Ur Transition Epith Cell Ur Renal Epithelial Cell Calcium Oxalate Crystal Leucine Crystals Cystine Crystals Tyrosine Crystals Other Crystals Urine Bacteria (None Seen) Urine Parasites Bilirubin Casts Epithelial Casts Fatty Casts Hyaline Casts (0-2) /LPF Granular Casts Waxy Casts Broad Casts RBC Casts WBC Casts Other Casts Urine Trichomonas Urine Yeast 05/19/23 05/19/23 05/19/23 Range/Units 20:32 20:32 20:32 WBC (4.8-10.8) X10*3/uL RBC (4.20-5.50) X10*6/uL Hgb (12.0-16.0) g/dl Hct (37.0-47.0) % MCV (80.0-98.0) fL MCH (27.0-33.0) pg MCHC (31.0-35.0) g/dl RDW (11.0-16.0) % Plt Count (160-400) X10*3/uL MPV (9.4-12.3) fL Immature Gran % (Auto) (0.0-0.4) % Neut % (Auto) (45-73) % Lymph % (Auto) (20-40) % [place] % (Auto) (2-11) % Eos % (Auto) (0-4) % Baso % (Auto) (0-2) % Lymph # (Auto) (1.2-4.9) X10*3/uL [place] # (Auto) (0.1-1.2) X10*3/uL Eos # (Auto) (0.0-0.4) X10*3/uL Baso # (Auto) (0.0-0.2) X10*3/uL Abs Immat Gran (auto) (0.00-0.03) X10*3/uL Absolute Neuts (auto) (2.0-8.3) x10*3/uL Absolute Nucleated RBC (0.0-0.012) X10*3/uL Nucleated RBC % (auto) (0.0-0.2) /100WBC Sodium (135-145) mmol/L Potassium (3.3-5.1) mmol/L Chloride (96-108) mmol/L Carbon Dioxide (22-29) mmol/L Anion Gap (12-20) BUN (9-16) mg/dL Creatinine (0.5-1.4) mg/dL Estim Creat Clear Calc Estimated GFR Random Glucose (60-115) mg/dL Lactic Acid (0.5-2.0) mmol/L Calcium (8.4-10.2) mg/dL Magnesium (1.6-2.6) mg/dL Total Bilirubin (0.0-1.0) mg/dL Direct Bilirubin (0.0-0.5) mg/dL AST (5-31) U/L ALT (0-31) U/L Alkaline Phosphatase (39-117) U/L Troponin I High Sens (<3.5-17.0) ng/L Total Protein (6.5-8.0) g/dL Albumin (3.5-5.0) g/dL Lipase (8-78) U/L Beta HCG, Quant mIU/mL Urine Color Urine Appearance Urine pH (5.0-9.0) Ur Specific [place] (1.005-1.025) Urine Protein (Neg-Trace) mg/dL Urine Glucose (UA) (Negative) mg/dL Urine Ketones (Negative) mg/dL Urine Blood (Negative) Urine Nitrite (Negative) Ur Leukocyte Esterase Cancelled (Negative) Urine RBC >20 H Cancelled (0-2) /HPF Urine WBC 11-20 Cancelled (0-5) /HPF Urine WBC Clumps Cancelled Ur Squamous Epith Cells 3-5 (0-2) /HPF Ur Transition Epith Cell Ur Renal Epithelial Cell Calcium Oxalate Crystal Leucine Crystals Cystine Crystals Tyrosine Crystals Other Crystals Urine Bacteria (None Seen) Urine Parasites Bilirubin Casts Epithelial Casts Fatty Casts Hyaline Casts (0-2) /LPF Granular Casts Waxy Casts Broad Casts RBC Casts WBC Casts Other Casts Urine Trichomonas Urine Yeast 05/19/23 05/19/23 05/19/23 Range/Units 20:32 20:32 20:32 WBC (4.8-10.8) X10*3/uL RBC (4.20-5.50) X10*6/uL Hgb (12.0-16.0) g/dl Hct (37.0-47.0) % MCV (80.0-98.0) fL MCH (27.0-33.0) pg MCHC (31.0-35.0) g/dl RDW (11.0-16.0) % Plt Count (160-400) X10*3/uL MPV (9.4-12.3) fL Immature Gran % (Auto) (0.0-0.4) % Neut % (Auto) (45-73) % Lymph % (Auto) (20-40) % [place] % (Auto) (2-11) % Eos % (Auto) (0-4) % Baso % (Auto) (0-2) % Lymph # (Auto) (1.2-4.9) X10*3/uL [place] # (Auto) (0.1-1.2) X10*3/uL Eos # (Auto) (0.0-0.4) X10*3/uL Baso # (Auto) (0.0-0.2) X10*3/uL Abs Immat Gran (auto) (0.00-0.03) X10*3/uL Absolute Neuts (auto) (2.0-8.3) x10*3/uL Absolute Nucleated RBC (0.0-0.012) X10*3/uL Nucleated RBC % (auto) (0.0-0.2) /100WBC Sodium (135-145) mmol/L Potassium (3.3-5.1) mmol/L Chloride (96-108) mmol/L Carbon Dioxide (22-29) mmol/L Anion Gap (12-20) BUN (9-16) mg/dL Creatinine (0.5-1.4) mg/dL Estim Creat Clear Calc Estimated GFR Random Glucose (60-115) mg/dL Lactic Acid (0.5-2.0) mmol/L Calcium (8.4-10.2) mg/dL Magnesium (1.6-2.6) mg/dL Total Bilirubin (0.0-1.0) mg/dL Direct Bilirubin (0.0-0.5) mg/dL AST (5-31) U/L ALT (0-31) U/L Alkaline Phosphatase (39-117) U/L Troponin I High Sens (<3.5-17.0) ng/L Total Protein (6.5-8.0) g/dL Albumin (3.5-5.0) g/dL Lipase (8-78) U/L Beta HCG, Quant mIU/mL Urine Color Urine Appearance Urine pH (5.0-9.0) Ur Specific [place] (1.005-1.025) Urine Protein (Neg-Trace) mg/dL Urine Glucose (UA) (Negative) mg/dL Urine Ketones (Negative) mg/dL Urine Blood (Negative) Urine Nitrite (Negative) Ur Leukocyte Esterase (Negative) Urine RBC (0-2) /HPF Urine WBC (0-5) /HPF Urine WBC Clumps Ur Squamous Epith Cells Cancelled (0-2) /HPF Ur Transition Epith Cell Cancelled Ur Renal Epithelial Cell Cancelled Calcium Oxalate Crystal Cancelled Leucine Crystals Cancelled Cystine Crystals Cancelled Tyrosine Crystals Cancelled Other Crystals Cancelled Urine Bacteria None Seen Cancelled (None Seen) Urine Parasites Cancelled Bilirubin Casts Cancelled Epithelial Casts Cancelled Fatty Casts Cancelled Hyaline Casts 0-2 Cancelled (0-2) /LPF Granular Casts Cancelled Waxy Casts Cancelled Broad Casts Cancelled RBC Casts Cancelled WBC Casts Cancelled Other Casts Cancelled Urine Trichomonas Cancelled Urine Yeast Cancelled Independent Interpretation I performed an independent interpretation of an: CT Scan Radiology Impression Radiologist Impression: FINDINGS: LOWER THORAX: Platelike atelectasis right and left lower lobes. HEPATOBILIARY: No focal hepatic lesions. No biliary ductal dilatation. GALLBLADDER: Gallbladder unremarkable. SPLEEN: Spleen is normal in size. PANCREAS: No focal mass or ductal dilatation. STOMACH AND GASTROINTESTINAL TRACT: Stomach is grossly unremarkable. There is no bowel distention or thickening. Appendix could not be identified might be obscured by crowding of bowel loops and lack of oral contrast, small bowel structure adjacent to the cecum felt to be terminal ileum. ADRENALS: No adrenal nodules. KIDNEYS/URETERS: No hydronephrosis, stones or solid mass lesions. URINARY BLADDER: Partially decompressed. PELVIC VISCERA: Uterus is bulky, possible uterine fibroids difficult to visualize on CT scan. PERITONEUM: No free air or fluid. LYMPH NODES: No lymphadenopathy. VASCULAR:Abdominal aorta normal in size, no aneurysm found. BONES, ABDOMINAL WALL AND SOFT TISSUES: Soft tissue swelling/scarring left lower quadrant and periumbilical region probably postsurgical, few air bubbles in the surgical bed and within the abdomen, in the immediate postoperative phase, only residual from recent surgery. CT/CT abdomen pelvis w IV con IMPRESSION: 1. Soft tissue swelling/scarring left lower quadrant and periumbilical region, few air bubbles in the surgical bed and within the abdomen, in the immediate postoperative phase, likely scarring or inflammation residual from recent surgery. 2. No CT evidence of bowel obstruction. 3. Bulky uterus, possible uterine fibroids. 4. Platelike atelectasis at lung bases. Medications Administered Discontinued Medications Generic Name Dose Route Start Last Admin Trade Name Freq PRN Reason Stop Dose Admin Sodium Chloride 1,000 mls @ 999 mls/hr 05/19/23 17:45 05/19/23 18:34 Ns IVCONT 05/19/23 18:45 999 mls/hr .Q1H1M ONE Administration Iohexol 85 ml 05/19/23 19:36 05/19/23 19:37 Iohexol 350 Mg/Ml 100 Ml Infus..Btl IV 05/19/23 19:37 85 ml ONCE ONE Administration Morphine Sulfate 4 mg 05/19/23 17:45 05/19/23 18:35 Morphine Sulfate 4 Mg/Ml Cartridge IVPUSH 05/19/23 17:46 4 mg ONCE ONE Administration Protocol Critical Care Time Critical Care Time Critical Care Time: Yes Total Critical Care Time: 45 Attestation: I have personally provided critical care time. Time includes review of lab data, radiology results, discussion with consultants, and monitoring for potential decompensation. Intervention performed as documented. Discharge Plan Discharge Clinical Impression: Post-op pain Patient Disposition: Home, Self-Care Instructions: Pain Management (ED), Narcotic Safety (ED) Additional Instructions: Please follow-up with your primary care physician tomorrow. If you have any worsening or new symptoms, please return to the emergency room or call 911 Prescriptions: No Action oxycodone 5 mg capsule 5 mg PO BEDTIME PRN (Reason: pain) Qty: 14 0RF Rx Instructions: Partial Fill upon patient request. nitrofurantoin monohyd/m-cryst [Macrobid] 100 mg capsule 100 mg PO Q12H 5 Days Qty: 10 0RF Rx Instructions: must administer with a meal/food pantoprazole [Protonix] 40 mg tablet,delayed release (DR/EC) 40 mg PO DAILY Qty: 90 0RF sucralfate 1 gram tablet 1 g PO BID Qty: 60 0RF ondansetron 4 mg tablet,disintegrating 4 mg PO Q8H PRN (Reason: nausea and vomiting) 4 Days Qty: 14 0RF
[2023-05-19] MEDS: iohexoL 350 MG/ML 100 ML INFUS..BTL 85 ML IV (19:37)
[2023-05-19 20:51] LABS: Appearance Urine Clear; Bacteria Urine None Seen (None Seen); Color Urine Orange; Glucose Urine UA Negative (Negative); Hyaline Casts Urine 0-2 /LPF (0-2); Leukocyte Esterase Urine Moderate (2+) (Negative); Nitrite Urine Negative (Negative); RBC Urine >20 /HPF (0-2); UACC Culture Trigger YES; UMIC TRIGGER UACC YES; Urine Blood Large (3+) (Negative); Urine Ketones Negative (Negative); Urine Protein 30 (1+) mg/dL (Neg-Trace)
[2023-05-19 21:14] VITALS: BP 109/74; PULSE 88; RESP 20; TEMP 36.8; O2SAT 98
== END 2023-05-19 22:16 | disposition home or self-care (01) ==
PROVIDERS: Emergency Provider Emergency Medicine
DX: G89.18 Other acute postprocedural pain (principal); Z87.59 Personal history of other complications of pregnancy, childbirth and the puerperium
CPT/HCPCS: 36415; 74177; 80048; 80076; 81001; 83605; 83690; 83735; 84484; 84702; 85025; 87040; 87086; 93005; 96361; 96374; 99284; 99285; J2270; Q9967

== ENCOUNTER → 2023-05-19 17:45 | Outpatient (BNV) | payer SELFPAY | PROVIDERS: Emergency Provider Emergency Medicine; Visit Provider Internal Medicine Cardiovascular Disease | DX: R10.9 Unspecified abdominal pain (principal) | CPT/HCPCS: 93010 ==

== ENCOUNTER 2023-05-28 09:00 | Outpatient (AMB) | payer SELFPAY ==
[2023-05-28 09:02] VITALS: BP 118/74; BMI 28.0
--- NOTE | 2023-05-28 09:02 | A.OFFVIS_ITS ---
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 The patient is doing well with no complaints no abdominal pain, incisional redness or vaginal bleeding. Pathology showed the following: Fallopian tube with immature chorionic villi, consistent with ectopic gestation [facility] Medical History Ectopic , tubal Surgical History History of salpingectomy Social History Household Members: Spouse Household Members Other:: daughter Housing: Apartment Alcohol intake: never Comment: counts correct Patient Tobacco Use Status: Never used Tobacco Current occupational status: unemployed Sexual orientation: Straight/Heterosexual Gender identity: Female Female Reproductive History Menstrual control method: none Total pregnancies: 1 Number of Living Children: 0 Ab spontaneous: 1 Review of Systems Const All systems reviewed & are unremarkable except as noted in HPI and below Reports as per HPI and Reports no additional complaints GI Reports no additional complaints Reports no additional complaints Physical Exam Vital Signs: Last Vital Signs BP 118/74 05/28/23 09:02 BMI result Body Mass Index 28.0 GI Other: Incisions= clear, dry and intact Palpation (GI): Soft to palpation and nontender Assessment & Plan Assessment & Plan (1) Ectopic , tubal: Comment: Elevated hCG 15353 Positive heart rate with pole and Code(s): O00.109 - Unspecified tubal without intrauterine Plan: Discussed with the patient the intraoperative findings and the pathology results HCG ordered and to be repeated in 10 days to follow it down to non levels Discussed with the patient the different options of control including control pills/Nuvaring, DMPA, different types of IUD ?s. All the pros, cons, risks and benefits of each were discussed with the patient. The patient decided not to use any method of control so instructions given the patient to use condoms for the coming 6 months to prevent . Discussed with the patient the recurrence rates of ectopic , instructions given the patient to take a test as soon as she misses her menstrual cycle and to call [facility] for serial hCG to rule out ectopic . All questions answered, the patient verbalized understanding Orders: Orders 2 HCG Quantitative Today O00.109 - Unspecified tubal without intrauterine HCG Quantitative 06/08/23 O00.109 - Unspecified tubal without intrauterine Coding Level of Care Code Est Pt Level 3 (08883) Diagnoses Ectopic , tubal O00.109
== END 2023-05-28 09:37 | disposition home or self-care (01) ==
LOC: HO.HWS 09:00
PROVIDERS: Visit Provider Obstetrics & Gynecology
DX: O00.109 Unspecified tubal pregnancy without intrauterine pregnancy (principal)
CPT/HCPCS: 99024

== ENCOUNTER 2023-05-28 09:00 | Outpatient (REF) | payer MEDICAID, OTHER, SELFPAY ==
[2023-05-28 11:25] LABS: HCG Quantitative 98 mIU/mL
== END 2023-05-28 09:01 | disposition home or self-care (01) ==
LOC: HO.LAB 09:00
PROVIDERS: Visit Provider Obstetrics & Gynecology
DX: O00.102 Left tubal pregnancy without intrauterine pregnancy (principal)
CPT/HCPCS: 36415; 84702; 99212

== ENCOUNTER 2023-06-11 10:13 | Outpatient (REF) | payer MEDICAID, OTHER, SELFPAY ==
[2023-06-11 12:49] LABS: HCG Quantitative 7 mIU/mL
== END 2023-06-11 10:14 | disposition home or self-care (01) ==
LOC: HO.LAB 10:13
PROVIDERS: Visit Provider Obstetrics & Gynecology
DX: O00.109 Unspecified tubal pregnancy without intrauterine pregnancy (principal)
CPT/HCPCS: 36415; 84702; 99212

== ENCOUNTER 2023-06-11 10:13 | Outpatient (AMB) | payer SELFPAY ==
[2023-06-11 10:43] VITALS: BP 114/70; BMI 28.1
--- NOTE | 2023-06-11 10:43 | A.OFFVIS_ITS ---
Intake Vital Signs 06/11/23 10:43 Height 5 ft 4 in Weight 164 lb BMI 28.1 BP 114/70 Intake Visit Reasons: HCG follow up Director Of Surgery Required: No Allergies No Known Allergies Allergy (Verified 06/11/23 10:44) Post menopausal: No Patient : Yes HPI HPI Comments History of Present Illness Details Presenting postop day 24 for hCG follow-up status post laparoscopic left partial salpingectomy for ectopic . The patient is doing well with no complaints no vaginal bleeding pelvic or abdominal pain HCG dropped from 2039 on 05/19 down to 98 on 05/29. HCG not done today REPLACED BY [facility] Medical History (Updated 06/11/23 @ 10:48 by Soren Taveras MD) Ectopic , tubal Surgical History History of salpingectomy Social History Household Members: Spouse Household Members Other:: daughter Housing: Apartment Alcohol intake: never Comment: counts correct Patient Tobacco Use Status: Never used Tobacco Current occupational status: unemployed Sexual orientation: Straight/Heterosexual Gender identity: Female Female Reproductive History Menstrual control method: none Assessment & Plan Assessment & Plan (1) Ectopic , tubal: Comment: Status post laparoscopic partial left salpingectomy Code(s): O00.109 - Unspecified tubal without intrauterine Plan: Instructions given the patient to have her hCG done if not 0 will follow it to to non level. Discussed with the patient the different options of control including control pills/Nuvaring, DMPA, different types of IUD ?s. All the pros, cons, risks and benefits of each were discussed with the patient. The patient de cided not to use any method of control so instructions given the patient to use condoms for the coming 6 months to prevent . Discussed with the patient the recurrence rates of ectopic , instructions given the patient to take a test as soon as she misses her menstrual cycle and to call [facility] for serial hCG to rule out ectopic . All questions answered, the patient verbalized understanding Coding Level of Care Code Est Pt Level 3 (58817) Diagnoses Ectopic , tubal O00.109
== END 2023-06-11 11:50 | disposition home or self-care (01) ==
LOC: HO.HWS 10:13
PROVIDERS: Visit Provider Obstetrics & Gynecology
DX: O00.109 Unspecified tubal pregnancy without intrauterine pregnancy (principal)
CPT/HCPCS: 99024

== ENCOUNTER 2023-06-25 11:04 | Outpatient (REF) | payer MEDICAID, OTHER, SELFPAY ==
[2023-06-25 12:13] LABS: HCG Quantitative < 2 mIU/mL
== END 2023-06-25 11:05 | disposition home or self-care (01) ==
LOC: HO.LAB 11:04
PROVIDERS: Visit Provider Obstetrics & Gynecology
DX: Z87.59 Personal history of other complications of pregnancy, childbirth and the puerperium (principal); Z90.721 Acquired absence of ovaries, unilateral
CPT/HCPCS: 36415; 84702; 99212

== ENCOUNTER 2023-06-25 14:52 | Outpatient (AMB) | payer SELFPAY ==
[2023-06-25 15:04] VITALS: BP 110/62; BMI 28.0
--- NOTE | 2023-06-25 15:04 | A.OFFVIS_ITS ---
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 The patient is doing well with no complaints [facility] Medical History Ectopic , tubal Surgical History History of salpingectomy Social History Household Members: Spouse Household Members Other:: daughter Housing: Apartment Alcohol intake: never Comment: counts correct Patient Tobacco Use Status: Never used Tobacco Current occupational status: unemployed Sexual orientation: Straight/Heterosexual Gender identity: Female Review of Systems Const All systems reviewed & are unremarkable except as noted in HPI and below Reports as per HPI and Reports no additional complaints GI Reports no additional complaints Reports no additional complaints Physical Exam Vital Signs: Last Vital Signs BP 110/62 06/25/23 15:04 BMI result Body Mass Index 28.0 Assessment & Plan Assessment & Plan (1) Ectopic , tubal: Comment: Status post laparoscopic partial left salpingectomy Code(s): O00.109 - Unspecified tubal without intrauterine Plan: Discussed with the patient the results hCG less than 2, the patient was reassured. Instructions given the patient to call [facility] if patient gets in the future to follow-up with early hCG and rule out recurrent ectopic All questions answered, the patient verbalized understanding. Orders: Orders HCG Quantitative Today O00.109 - Unspecified tubal without intrauterine Coding Level of Care Code Est Pt Level 3 (07189) Diagnoses Ectopic , tubal O00.109
== END 2023-06-25 15:52 | disposition home or self-care (01) ==
LOC: HO.HWS 14:53
PROVIDERS: Visit Provider Obstetrics & Gynecology
DX: O00.109 Unspecified tubal pregnancy without intrauterine pregnancy (principal)
CPT/HCPCS: 99024

== ENCOUNTER 2023-09-08 22:05 | Emergency (ER) | payer MEDICAID, OTHER, SELFPAY ==
[2023-09-08 22:13] VITALS: BP 124/88; PULSE 88
[2023-09-08 22:15] VITALS: BP 128/84; PULSE 86; RESP 22; TEMP 36.7; O2SAT 100; BMI 27.5
== END 2023-09-09 03:52 | disposition left against medical advice (07) ==
PROVIDERS: Emergency Provider Emergency Medicine
DX: M25.512 Pain in left shoulder (principal); Z53.21 Procedure and treatment not carried out due to patient leaving prior to being seen by health care provider
CPT/HCPCS: 99281

== ENCOUNTER 2023-10-21 09:25 | Outpatient (AMB) | payer SELFPAY ==
--- NOTE | 2023-10-21 09:45 | A.OFFVIS_ITS ---
Vital Signs 10/21/23 09:46 Height 5 ft 3 in Weight 154 lb 5.177 oz BMI 27.3 BP 92/60 Intake Visit Reasons: follow up Allergies No Known Allergies Allergy (Verified 09/08/23 22:19) HPI Comments Details: The patient is presenting with mild LLQ pain started few weeks ago. It's intermittent in nature lasting few seconds and occurs few x/day. it is not associated with any constipation, or dysuria, no urinary frequency or incontinence, no n/v, no feverishness. LMP was 09/23/2023 [facility] Medical History Ectopic , tubal Surgical History History of salpingectomy Social History Household Members: Spouse Household Members Other:: daughter Housing: Apartment Alcohol intake: never Comment: counts correct Patient Tobacco Use Status: Never used Tobacco Current occupational status: unemployed Sexual orientation: Straight/Heterosexual Gender identity: Female Review of Systems Const All systems reviewed & are unremarkable except as noted in HPI and below Physical Exam Vital Signs: Last Vital Signs BP 92/60 10/21/23 09:46 BMI result Body Mass Index 27.3 GI Palpation (GI): Soft to palpation and nontender General: Yes no CVA tenderness External Female Exam: normal external appearance and normal appearance of the urethra Speculum Exam - Vagina: normal appearance of the vagina, normal palpation, no lesions and no masses Speculum Exam - Cervix: normal appearance of the cervix, normal palpation, no lesions, no masses and nontender Bimanual exam- vagina & uterus: normal bimanual exam, normal palpation, uterine size normal, normal palpation, uterine shape normal, No Cervical tenderness present and non-tender Bimanual Exam- Adnexa, other: normal adnexae Back/Spine/Pelvis Back: no CVA tenderness Results AMB Test Urine AMB Test Urine Positive Last Edit by Sara Bryan CMA on 10:22 Results Reviewed Results Reviewed: Laboratory Last Values [facility] Clinic Positive 10/21/23 10:20 RUN: 10/21/23 1400 PAGE 1 [facility] [address] [place] [address] Presentation Designer: Vinh Driscoll M.D. Specimen Inquiry Name: Arcelia Angel Age/Sex: 38/F : 1985 Unit#: [id number] Attend Dr: Soren Taveras MD Re10/21/23 Status: REG REF [facility] Disch: SPEC : [id number] ANU: 10/21/23 STATUS: COMP REQ : [id number] RECD: 10/21/[address] [facility] [address]: Soren Taveras MD COMP: 10/21/23-8 ENTERED: 10/21/23-10[address] [facility] [address]: ORDERED: HCG Quant Test Result Flag Reference HCG Quant 710 mIU/mL Weeks post LMP Approximate hCG (Last Menstrual Period) Range (mIU/ml) 3 - 4 weeks 9 - 130 4 - 5 weeks 75 - 2,600 5 - 6 weeks 850 - 20,800 6 - 7 weeks 4000 - 100,200 7 - 12 weeks 11,500 - 289,000 12 - 16 weeks 18,300 - 137,000 16 - 29 weeks (2nd trimester) 1,400 - 53,000 29 - 41 weeks (3rd trimester) 940 - 60,000 The [place] B-hCG assay is used for the early detection of ; it cannot be used to diagnose any condition unrelated to . If a B-hCG level is not supported by the clinical evidence, results should be confirmed by an alternative method (qualitative urine hCG, for example). END OF REPORT Assessment & Plan Assessment & Plan (1) Pelvic pain: Code(s): R10.2 - Pelvic and perineal pain Category: Medical Plan: Urine dip showed microscopic hematuria and urine test done in the office was positive. GC and chlamydia taken and pelvic ultrasound ordered. (2) Early stage of : Code(s): Z34.90 - Encounter for supervision of normal , unspecified, unspecified trimester Category: Medical Plan: Urine test done in the office was positive, stat hCG was sent and came back at 710, pelvic ultrasound preliminary report showed no IUP , no adnexal masses with multiple uterine myomas, official reports is still pending. Discussed with the patient the fact that she has a history of ectopic status post laparoscopic left partial salpingectomy, explained to the patient the risk of ectopic recurrence , therefore, I recommended to the patient to go to emergency room in 48 hours for repeat hCG quantitative with repeat ultrasound and reevaluation since this is a holiday week , the office is closed and there is no [employer] coverage available at [facility]. Explained to the patient that the goal of the evaluation every 48 hours with repeat hCG quantitative and repeat pelvic ultrasound is to confirm intrauterine and rule out ectopic . Signs and symptoms of SAB/ectopic were discussed with the patient, instructions given the patient to call or go to emergency room in case of pelvic pain and or vaginal bleeding. The patient was given a copy of the hCG labs results, and the office note to take with her to the emergency room for reevaluation. All questions answered, the patient verbalized understanding especially the urgency of her clinical situation, and the importance of close follow-up every 48 hours till intrauterine confirmed an ectopic is ruled out. Follow-up visit in the office scheduled on 10/25 in the office, the patient is aware. vitamin tablet p.o. q.d. (3) Microscopic hematuria: Code(s): R31.29 - Other microscopic hematuria Category: Medical Plan: Urine dip showed microscopic hematuria will send urine for culture and repeat urine next visit Orders: Orders HCG Quantitative Today Z34.90 - Encounter for supervision of normal , unspecified, unspecified trimester AMB HCG Urine Test Today Z32.01 - Encounter for test, result positive Urine Culture Today R31.29 - Other microscopic hematuria CT NG by PCR Today R10.2 - Pelvic and perineal pain Medications: New no.144-folic acid 400 mcg 1 tab PO DAILY 180 days 180 tabs 1RF Coding Level of Care Code Est Pt Level 3 (37606) Diagnoses Pelvic pain R10.2 Early stage of Z34.90 Microscopic hematuria R31.29
[2023-10-21 09:46] VITALS: BP 92/60; BMI 27.3
== END 2023-10-21 13:44 | disposition home or self-care (01) ==
LOC: HO.HWS 09:25
PROVIDERS: Visit Provider Obstetrics & Gynecology
DX: R10.2 Pelvic and perineal pain (principal); R31.29 Other microscopic hematuria; Z32.01 Encounter for pregnancy test, result positive
CPT/HCPCS: 99213

== ENCOUNTER 2023-10-21 09:25 | Outpatient (REF) | payer MEDICAID, OTHER, SELFPAY | END 2023-10-21 09:26 | disposition home or self-care (01) | LOC: HO.LNP 09:25 | PROVIDERS: Visit Provider Obstetrics & Gynecology | DX: Z32.01 Encounter for pregnancy test, result positive (principal); R10.2 Pelvic and perineal pain; R31.29 Other microscopic hematuria | CPT/HCPCS: 76801; 76817; 81025; 84702; 87086; 87491; 87591; 99212 ==

== ENCOUNTER 2023-10-21 10:30 | Outpatient (REF) | payer MEDICAID, OTHER, SELFPAY ==
--- NOTE | ~2023-10-21 | US_ITS ---
EXAMINATION: ULTRASOUND PELVIC, COMPLETE CLINICAL INFORMATION: Positive hCG 710. Left lower quadrant pain COMPARISON: Pelvic ultrasound May 17, 2023 TECHNIQUE: Transvaginal: Used to better visualize pelvic structures Transabdominal: Not adequate for visualization Spectral Doppler and color Doppler exam was utilized. LMP: 09/23/2023. Gestational age by LMP is 4 weeks 0 days. FINDINGS: UTERUS: There is no intrauterine gestational sac. Endometrium measures 2 cm in diameter. No fluid in the endometrial cavity. Multiple uterine fibroids: 1. Left-sided fundus. 3.9 x 3.8 x 3.6 cm. 2. Right-sided fundus. 3.1 x 3.2 x 3.2 cm. 3. Right uterine body. 2.7 x 2.1 x 2.5 cm The uterus overall measures 8.2 x 4.9 x 6.2 cm. ADNEXA: Ovarian vascularity:Doppler demonstrates both arterial and venous vascular flow in the right and left ovary. No evidence of ovarian torsion. Right Ovary: 3.2 x 2.2 x 2.3 cm Left Ovary: 4.3 x 2 x 3.3 cm Cul-de-sac: No Fluid US/US OB pelvic and transvaginal IMPRESSION: 1. There is no intrauterine gestation. This may be due to early gestation. Ectopic can not be excluded. Correlate with serial beta-hCG studies. Consider follow-up pelvic ultrasound in one to 2 weeks. 2. There are multiple uterine fibroids. 3. No fluid in the cul-de-sac. 4. Normal right and left ovaries.
[2023-10-21 11:18] LABS: HCG Quantitative 710 mIU/mL
[2023-10-21 13:52] LABS: CT PCR NOT DETECTED (Not Detect.); NG PCR NOT DETECTED (Not Detect.)
== END 2023-10-21 10:31 | disposition home or self-care (01) ==
LOC: HO.LAB 10:30
PROVIDERS: Visit Provider Obstetrics & Gynecology
DX: O00.109 Unspecified tubal pregnancy without intrauterine pregnancy (principal); R31.29 Other microscopic hematuria; R10.2 Pelvic and perineal pain
CPT/HCPCS: 76801; 76817; 84702; 87086; 87491; 87591

== ENCOUNTER 2023-10-27 | Outpatient (REF) | payer MEDICAID, OTHER, SELFPAY | END 2023-10-27 00:01 | disposition home or self-care (01) | LOC: CF | PROVIDERS: Visit Provider Obstetrics & Gynecology | DX: Z34.90 Encounter for supervision of normal pregnancy, unspecified, unspecified trimester (principal) | CPT/HCPCS: 99212 ==

== ENCOUNTER 2023-10-27 09:42 | Outpatient (REF) | payer MEDICAID, OTHER, SELFPAY ==
--- NOTE | ~2023-10-27 | US_ITS ---
EXAMINATION: US OBSTETRICAL ULTRASOUND CLINICAL INFORMATION: Supervision of COMPARISON: 10/21/2023 LMP: 09/23/23 By LMP, gestational age is 4 weeks 6 days with HELLEN 06/29/2024. Gestational sac measuring 0.49 cm is seen with identifiable yolk sac. No pole or heart rate detected. Calculated gestational age based on gestational sac is 5 weeks 0 days with HELLEN 06/28/2024. Multiple fibroids again seen, on the left measuring 2.4 x 2.4 x 2.2 cm, in the right fundus, 2.8 x 2.6 x 3.0 cm and on the right measuring 2.5 x 2.3 x 2.3 cm. MATERNAL ADNEXA: The right maternal ovary measures 3.4 x 2.1 x 1.7 centimeters. The left maternal ovary was not seen. There is no significant maternal adnexal mass. No maternal pelvic ascites. US/US OB pelvic and transvaginal IMPRESSION: 1. Single intrauterine gestation with ultrasound gestational age of 5 weeks 0 days +/- 4 days. 2. Estimated date of delivery is 06/28/2024 +/- 4 days. 3. Uterine fibroids. 4. Nonvisualization left ovary.
[2023-10-27 10:35] LABS: HCG Quantitative 6075 mIU/mL
== END 2023-10-27 09:43 | disposition home or self-care (01) ==
LOC: HO.LAB 09:42
PROVIDERS: Visit Provider Obstetrics & Gynecology
DX: Z34.90 Encounter for supervision of normal pregnancy, unspecified, unspecified trimester (principal)
CPT/HCPCS: 36415; 76801; 76817; 84702; 99212

== ENCOUNTER 2023-10-27 10:04 | Outpatient (AMB) | payer SELFPAY ==
--- NOTE | 2023-10-27 12:58 | A.OFFVIS_ITS ---
Intake Visit Reasons: HCG follow up/US follow up per Allergies No Known Allergies Allergy (Verified 09/08/23 22:19) HPI Comments Details: Presenting for hCG follow-up, no complaints no pelvic pain and or bleeding. HCG on 10/20 was 710 On 10/22 went up to 1444 On 10/24 was 3005 And today on 10/26 was 6075 Ultrasound done today showed the following: IMPRESSION: 1. Single intrauterine gestation with ultrasound gestational age of 5 weeks 0 days +/- 4 days. 2. Estimated date of delivery is 06/28/2024 +/- 4 days. 3. Uterine fibroids. 4. Nonvisualization left ovary. [facility] Medical History Ectopic , tubal Surgical History History of salpingectomy Social History Household Members: Spouse Household Members Other:: daughter Housing: Apartment Alcohol intake: never Comment: counts correct Patient Tobacco Use Status: Never used Tobacco Current occupational status: unemployed Sexual orientation: Straight/Heterosexual Gender identity: Female Review of Systems Const All systems reviewed & are unremarkable except as noted in HPI and below Reports as per HPI and Reports no additional complaints GI Reports no additional complaints Reports no additional complaints Assessment & Plan Assessment & Plan (1) Early stage of : Code(s): Z34.90 - Encounter for supervision of normal , unspecified, unspecified trimester Category: Medical Plan: Discussed with the patient the rate of rise of hCG and the finding on ultrasound, since MSD is less than 25 mm and there was no evidence of embryo will repeat ultrasound in 11 days. SAB warnings given the patient, she is to call or go to emergency room in case of pelvic pain and or bleeding. vitamin 1 tablet p.o. q.d.. Instructions given the patient to schedule a 2 week follow-up appointment. All questions answered, the patient verbalized understanding. Orders: Orders US OB pelvic and transvaginal 11/09/23 Z34.90 - Encounter for supervision of normal , unspecified, unspecified trimester HCG Quantitative Today Z34.90 - Encounter for supervision of normal , unspecified, unspecified trimester Coding Level of Care Code Est Pt Level 3 (74054) Diagnoses Early stage of Z34.90
== END 2023-10-27 13:04 | disposition home or self-care (01) ==
LOC: HO.HWS 10:04
PROVIDERS: Visit Provider Obstetrics & Gynecology
DX: Z34.90 Encounter for supervision of normal pregnancy, unspecified, unspecified trimester (principal)
CPT/HCPCS: 99213

== ENCOUNTER 2023-11-09 02:27 | Emergency (ER) | payer MEDICAID, OTHER, SELFPAY ==
--- NOTE | ~2023-11-09 | US_ITS ---
EXAMINATION: US ABDOMEN LIMITED CLINICAL INFORMATION: Right upper quadrant pain.. COMPARISON: None available. TECHNIQUE: Real-time imaging of the right upper quadrant abdominal viscera. FINDINGS: PANCREAS: The visualized portions of the pancreas are normal in appearance. LIVER: Normal. The liver is normal in size. The liver contour is normal. Parenchymal echogenicity is normal. Hepatic calcifications are seen. There is no intrahepatic biliary duct dilatation seen. GALLBLADDER: The gallbladder is normally distended. There is echogenic nonshadowing material within the gallbladder consistent with mobile sludge. No definitive shadowing gallbladder calculi are seen. There is no gallbladder wall thickening or pericholecystic fluid. Thickening or pericholecystic fluid. The patient did not report pain when scanning the right upper quadrant COMMON BILE DUCT: Normal in caliber measuring 0.4 cm in diameter. RIGHT KIDNEY: Normal. No hydronephrosis. No renal calculi or focal parenchymal lesions. The kidney measures 9.6 cm in maximum dimension. FREE FLUID: None. US/US abdomen limited IMPRESSION: Mobile echogenic material within the gallbladder consistent with sludge. No evidence of acute cholecystitis or biliary ductal dilatation.
[2023-11-09 02:38] VITALS: BP 118/90; PULSE 88; O2SAT 99
[2023-11-09 02:41] VITALS: BP 116/74; PULSE 77; RESP 19; TEMP 36.8; O2SAT 100
--- NOTE | 2023-11-09 02:43 | ED.ABDPAIN ---
HPI - Abdominal Pain General Chief Complaint: Abdominal Pain Stated Complaint: abdominal pain Time Seen by Provider: 11/09/23 02:40 Source: patient, EMS and old records reviewed Mode of arrival: EMS Limitations: no limitations History of Present Illness ED Provider: DEE BENJAMIN narrative: 38 yo female with PMH of ectopic and salpingectomy April of 2023 she has since become followed by Dr. Taveras with rising hcg levels and recent US on 10/26 showing IUP with HELLEN 06/29/24 she is 6w5d plan with OBGYN was to repeat US in 11 days. She comes to the ED today with c/o epigastric pain and n/v after eating fried and spicy food. No diarrhea. MD elicited complaint: abdominal pain Pertinent past history: other (ectopic April ) Onset (ago): day(s) (prior to bed) Pain Consistency: constant Location: epigastric Severity: moderate Quality: stabbing and aching Radiation: none Migration to: no migration Exacerbating factors: eating, vomiting and movement Relieving factors: nothing Associated symptoms: nausea and vomiting Related Data Previous Rx's ?Medication ?Instructions ?Recorded vitamins no.144-folic 1 tab PO DAILY 180 days #180 tabs 10/21/23 acid 400 mcg chewable tablet ondansetron 4 mg disintegrating 4 mg PO Q8H PRN nausea and 11/09/23 tablet vomiting #10 tabs Allergies Allergy/AdvReac Type Severity Reaction Status Date / Time No Known Allergies Allergy Verified 11/09/23 02:48 Review of Systems Review of Systems Constitutional : No Weight loss, No Fever, No Chills ENT/Mouth : No sore throat, No Rhinorrhea Eyes: No Swelling, No Redness Cardiovascular : No Chest Pain, No SOB, NoEdema Respiratory : No Cough, No Sputum, No Wheezing Gastrointestinal : Positive Nausea, Positive Vomiting, no Diarrhea, positive abdominal Pain, No Hematochezia, No Melena Genitourinary : No Dysuria, No Urinary Frequency, No Hematuria, No Urgency , no bleeding Musculoskeletal : No joint pain, No Myalgias, No Joint Swelling Skin : No Skin Lesions, No rash Neuro : No Weakness, No Numbness, No Dizziness, No Headache Psych : No Anxiety/Panic, No Depression All other systems reviewed and are negative. [facility] Past Medical History Attestation statement: The following information was validated with the patient. Source: old records reviewed Medical History Ectopic , tubal Surgical History History of salpingectomy Social History Social History Household Members: Spouse Household Members Other:: daughter Housing: Apartment Alcohol intake: never Comment: counts correct Patient Tobacco Use Status: Never used Tobacco Advance Directives: No Advance Directives Information Provided: Yes Advance Directives on File: No Current occupational status: unemployed Sexual orientation: Straight/Heterosexual Gender identity: Female Physical Exam ED Vital Signs: Vital Signs - 24 hr 11/09/23 02:41 11/09/23 02:48 Temperature 98.3 F 98.3 F Pulse Rate 77 77 Respiratory Rate 19 19 Blood Pressure 116/74 116/74 Pulse Oximetry 100 100 Oxygen Delivery Method Room Air Room Air BMI result Body Mass Index 28.7 Appearance: Alert. Oriented X3. No acute distress. Eyes: Pupils equal, round and reactive to light. ENT: Pharynx normal. Neck: Normal inspection. Neck supple. CVS: Normal heart rate and rhythm. Pulses normal. Respiratory: No respiratory distress. Breath sounds normal. Abdomen: Soft and moderate epigastric ttp no rebound neg mtz's sign Skin: Skin warm and dry. Normal skin color. Normal skin turgor. Extremities: No lower extremity edema. No calf ttp Neuro: Oriented X 3. No motor deficit. No sensory deficit. Course Course Course Narrative: patient feels much better stable for DC Medical Decision Making Medical Decision Making [facility] Narrative: 38 yofemale recent ectopic s/p surgery now again 6w5d per US here with epigastric pain severe with n/v since eating spicy and fried foods no vaginal bleeding or lower abdominal pain at this time will obtain labs, lipase, IVF, reglan benadryl and pepcid. Suspect gastritis vs biliary colic. US of GB ordered. Differential Diagnosis Differential Diagnoses: The differential diagnosis associated with the presentation includes gastritis vs biliary colic vs pancreatitis Admission/Observation Consideration of admission/observation: Escalation of care including admission/observation considered sleeping pain and n/v improved labs reassuring - mild bump in AST but by one point normal bili and lipase no signs of acute cholecystitis quant improved Lab Data [facility] Lab Attestation statement: I reviewed the patient's lab results. 11/09/23 03:02 11/09/23 03:02 Labs: Lab Results 11/09/23 11/09/23 Range/Units 03:02 03:55 WBC 5.8 (4.8-10.8) X10*3/uL RBC 4.51 (4.20-5.50) X10*6/uL Hgb 12.1 (12.0-16.0) g/dl Hct 35.7 L (37.0-47.0) % MCV 79.2 L (80.0-98.0) fL MCH 26.8 L (27.0-33.0) pg MCHC 33.9 (31.0-35.0) g/dl RDW 12.6 (11.0-16.0) % Plt Count 227 (160-400) X10*3/uL MPV 10.5 (9.4-12.3) fL Immature Gran % (Auto) 0.2 (0.0-0.4) % Neut % (Auto) 53.3 (45-73) % Lymph % (Auto) 36.1 (20-40) % [place] % (Auto) 8.3 (2-11) % Eos % (Auto) 1.6 (0-4) % Baso % (Auto) 0.5 (0-2) % Lymph # (Auto) 2.1 (1.2-4.9) X10*3/uL [place] # (Auto) 0.5 (0.1-1.2) X10*3/uL Eos # (Auto) 0.1 (0.0-0.4) X10*3/uL Baso # (Auto) 0.0 (0.0-0.2) X10*3/uL Abs Immat Gran (auto) 0.01 (0.00-0.03) X10*3/uL Absolute Neuts (auto) 3.1 (2.0-8.3) x10*3/uL Absolute Nucleated RBC 0.000 (0.0-0.012) X10*3/uL Nucleated RBC % (auto) 0.0 (0.0-0.2) /100WBC Sodium 137 (135-145) mmol/L Potassium 3.7 (3.3-5.1) mmol/L Chloride 105 (96-108) mmol/L Carbon Dioxide 21 L (22-29) mmol/L Anion Gap 15 (12-20) BUN 11 (9-16) mg/dL Creatinine 0.73 (0.5-1.4) mg/dL Estim Creat Clear Calc 94.6 Estimated GFR > 60 Random Glucose 123 H (60-115) mg/dL Calcium 9.8 (8.4-10.2) mg/dL Total Bilirubin 0.4 (0.0-1.0) mg/dL Direct Bilirubin 0.2 (0.0-0.5) mg/dL AST 15 (5-31) U/L ALT 32 H (0-31) U/L Alkaline Phosphatase 49 (39-117) U/L Total Protein 7.2 (6.5-8.0) g/dL Albumin 4.1 (3.5-5.0) g/dL Lipase 34 (8-78) U/L Beta HCG, Quant 59473 mIU/mL Urine Color Yellow Urine Appearance Clear Urine pH 7.5 (5.0-9.0) Ur Specific [place] 1.020 (1.005-1.025) Urine Protein Negative (Neg-Trace) mg/dL Urine Glucose (UA) Negative (Negative) mg/dL Urine Ketones Trace (Negative) mg/dL Urine Blood Negative (Negative) Urine Nitrite Negative (Negative) Ur Leukocyte Esterase Negative (Negative) Independent Interpretation I performed an independent interpretation of an: Ultrasound (no cholecystitis) Radiology Impression Discussion of test interpretation with radiology: I have reviewed the radiologist's reading. Independent Historian Clinical information obtained from an independent historian. History obtained from or confirmed by: EMS External Record Review External record reviewed: Inpatient record and Office record Prescription Management I considered prescription management with: Other (zofran) Medications Administered Discontinued Medications Generic Name Dose Route Start Last Admin Trade Name Freq PRN Reason Stop Dose Admin Diphenhydramine HCl 25 mg 11/09/23 02:54 11/09/23 03:08 Diphenhydramine Hcl 50 Mg/Ml Vial IVPUSH 11/09/23 02:55 25 mg ONCE ONE Administration Famotidine 20 mg 11/09/23 02:54 11/09/23 03:12 Famotidine/Pf 20 Mg/2 Ml Vial IVPUSH 11/09/23 02:55 20 mg ONCE ONE Administration Sodium Chloride 1,000 mls @ 999 mls/hr 11/09/23 02:54 11/09/23 04:30 Ns IV 11/09/23 03:54 Infused .Q1H1M ONE Infusion Metoclopramide HCl 10 mg 11/09/23 02:54 11/09/23 03:12 Metoclopramide Hcl 10 Mg/2 Ml Vial IVPUSH 11/09/23 02:55 10 mg ONCE ONE Administration Discharge Plan Discharge Clinical Impression: Gastritis Qualifiers: Gastritis type: unspecified gastritis Chronicity: acute Gastritis bleeding: without bleeding Qualified Code(s): K29.00 - Acute gastritis without bleeding Nausea & vomiting Qualifiers: Vomiting type: unspecified Qualified Code(s): R11.2 - Nausea with vomiting, unspecified Patient Disposition: Home, Self-Care Instructions: Gastritis (ED), Acute Nausea and Vomiting (ED), Acute Abdominal Pain (ED) Additional Instructions: labs reassuring appropriate rise in quant ultrasound shows no infection of gallbladder would avoid greasy spicy food in the future return for fevers, vomiting, worsening pain, inability to eat or drink or any other concerns. Prescriptions: New ondansetron 4 mg tablet,disintegrating 4 mg PO Q8H PRN (Reason: nausea and vomiting) Qty: 10 0RF No Action no.144-folic acid 400 mcg tablet,chewable 1 tab PO DAILY 180 Days Qty: 180 1RF Print Language: Czech
[2023-11-09 02:48] VITALS: BP 116/74; PULSE 77; RESP 19; TEMP 36.8; O2SAT 100; BMI 28.7
[2023-11-09 03:08] LABS: MANUAL DIFF FLAG NO
[2023-11-09] MEDS: diphenhydrAMINE HCL 50 MG/ML VIAL 25 MG IVPUSH (03:08)
[2023-11-09] MEDS: 0.9 % Sodium Chloride 1,000 ML 999 ML IV (03:08)
[2023-11-09 03:10] LABS: Basophils Percent Auto 0.5 % (0-2); Eosinophils Absolute Auto 0.1 X10*3/uL (0.0-0.4); Eosinophils Percent Auto 1.6 % (0-4); Hematocrit 35.7 % (37.0-47.0); Hemoglobin 12.1 g/dl (12.0-16.0); Imm Gran Abs Auto 0.01 X10*3/uL (0.00-0.03); Imm Gran Pct Auto 0.2 % (0.0-0.4); Lymphocytes Absolute Auto 2.1 X10*3/uL (1.2-4.9); Lymphocytes Percent Auto 36.1 % (20-40); Mean Corpuscular HGB Conc 33.9 g/dl (31.0-35.0); Mean Corpuscular Hemoglobin 26.8 pg (27.0-33.0); Mean Corpuscular Volume 79.2 fL (80.0-98.0); Mean Platelet Volume 10.5 fL (9.4-12.3); Monocytes Absolute Auto 0.5 X10*3/uL (0.1-1.2); Monocytes Percent Auto 8.3 % (2-11); Neutrophils Absolute Auto 3.1 x10*3/uL (2.0-8.3); Neutrophils Percent Auto 53.3 % (45-73); Platelet Count 227 X10*3/uL (160-400); Red Blood Count 4.51 X10*6/uL (4.20-5.50); Red Cell Distribution Width 12.6 % (11.0-16.0); White Blood Count 5.8 X10*3/uL (4.8-10.8)
[2023-11-09] MEDS: Famotidine/PF 20 MG/2 ML VIAL IVPUSH (03:12)
[2023-11-09] MEDS: Metoclopramide HCl 10 MG/2 ML VIAL IVPUSH (03:12)
[2023-11-09 03:37] LABS: Alanine Aminotransferase 32 U/L (0-31); Albumin Level 4.1 g/dL (3.5-5.0); Alkaline Phosphatase 49 U/L (39-117); Anion Gap 15 (12-20); Aspartate Amino Transferase 15 U/L (5-31); Bilirubin Direct 0.2 mg/dL (0.0-0.5); Bilirubin Total 0.4 mg/dL (0.0-1.0); Blood Urea Nitrogen 11 mg/dL (9-16); Calcium 9.8 mg/dL (8.4-10.2); Carbon Dioxide 21 mmol/L (22-29); Chloride 105 mmol/L (96-108); Creatinine Clr Calc Pharmacy 94.6; Estimated Glomerular Filt Rate > 60; Glucose Random 123 mg/dL (60-115); Lipase 34 U/L (8-78); Potassium 3.7 mmol/L (3.3-5.1); Sodium 137 mmol/L (135-145); Total Protein 7.2 g/dL (6.5-8.0)
[2023-11-09 04:03] LABS: Appearance Urine Clear; Color Urine Yellow; Glucose Urine UA Negative (Negative); Leukocyte Esterase Urine Negative (Negative); Nitrite Urine Negative (Negative); PH 7.5 (5.0-9.0); Urine Blood Negative (Negative); Urine Ketones Trace mg/dL (Negative); Urine Protein Negative (Neg-Trace)
[2023-11-09 07:04] VITALS: BP 106/52; PULSE 88; RESP 18; TEMP 36.9; O2SAT 97
== END 2023-11-09 07:05 | disposition home or self-care (01) ==
PROVIDERS: Emergency Provider Emergency Medicine
DX: K29.00 Acute gastritis without bleeding (principal); R11.2 Nausea with vomiting, unspecified; R10.11 Right upper quadrant pain; Z79.899 Other long term (current) drug therapy
CPT/HCPCS: 36415; 76705; 80048; 80076; 81003; 83690; 84702; 85025; 96361; 96374; 96375; 99283; 99284; J1200; J2765

== ENCOUNTER 2023-11-09 11:30 | Outpatient (REF) | payer MEDICAID, OTHER, SELFPAY ==
--- NOTE | ~2023-11-09 | US_ITS ---
EXAMINATION: US OBSTETRICAL ULTRASOUND CLINICAL INFORMATION: Supervision of . COMPARISON: 10/27/2023 LMP: 09/23/2023 By LMP, gestational age is 6 weeks 5 days with HELLEN 06/29/2024. Gestational age by ultrasound is 6 weeks 3 days with HELLEN 07/01/2024. TECHNIQUE: Ultrasound images of the pelvis employing obstetrical technique. Limited visualization due to bowel gas and body habitus. FINDINGS: There is a single live intrauterine gestation with heart rate 139 bpm. Visualization of gestational sac, yolk sac and pole. Trace amount of free fluid in the cul-de-sac. Multiple fibroids visualized, largest left 3.1 x 3.2 x 3.6 cm. Right ovary measures 3.0 x 1.3 x 1.9 cm. Left ovary measures 3.1 x 1.7 x 3.2 cm. Left ovarian 1.9 x 1.1 x 1.5 cm complex cyst, possibly a corpus luteum. US/US OB pelvic and transvaginal IMPRESSION: 1. Single intrauterine gestation with ultrasound gestational age of 6 weeks 3 days +/- 4 days. 2. Estimated date of delivery is 07/01/2024 +/- 4 days based on today's measurements and 06/28/2024 based on 10/27/2023. 3. Uterine fibroids. 4. Left ovarian complex cyst, possibly a corpus luteum. This study was presented today November 16, 2023 for interpretation. Stat results provided at this time as requested by referring provider.
== END 2023-11-09 11:31 | disposition home or self-care (01) ==
LOC: HO.US 11:30
PROVIDERS: Visit Provider Obstetrics & Gynecology
DX: Z34.91 Encounter for supervision of normal pregnancy, unspecified, first trimester (principal); Z3A.01 Less than 8 weeks gestation of pregnancy
CPT/HCPCS: 76801; 76817

== ENCOUNTER 2023-11-10 08:46 | Outpatient (AMB) | payer SELFPAY ==
--- NOTE | 2023-11-10 08:49 | A.OFFVIS_ITS ---
Vital Signs 11/10/23 08:50 Height 5 ft 2 in Weight 156 lb 8.451 oz BMI 28.6 Intake Visit Reasons: US follow up per Allergies No Known Allergies Allergy (Verified 11/09/23 02:48) HPI Comments Details: Presenting for ultrasound follow-up with no complaints no pelvic pain/cramping no vaginal bleeding. On vitamin 1 tablet p.o. q.d. ultrasound. Complaining of nausea with no vomiting but able to keep fluids and food down Follow-up ultrasound, no official report available yet but unofficial reading shows 6 weeks and 3 days of gestation intrauterine with yolk sac pole positive heart rate 139 beats per minute EDC by ultrasound 07/01/2024, multiple myomas the largest on the left side measuring 3.1 x 3.6 cm [facility] Medical History Ectopic , tubal Surgical History History of salpingectomy Social History Household Members: Spouse Household Members Other:: daughter Housing: Apartment Alcohol intake: never Comment: counts correct Patient Tobacco Use Status: Never used Tobacco Current occupational status: unemployed Sexual orientation: Straight/Heterosexual Gender identity: Female Review of Systems Const All systems reviewed & are unremarkable except as noted in HPI and below Reports as per HPI and Reports no additional complaints GI Reports no additional complaints Reports no additional complaints Physical Exam Vital Signs: BMI result Body Mass Index 28.6 Assessment & Plan Assessment & Plan (1) Early stage of : Comment: With myomas AMA Code(s): Z34.90 - Encounter for supervision of normal , unspecified, unspecified trimester Category: Medical Plan: SAB warnings given the patient she is to call or go to emergency room in case pelvic pain and or cramping. Vitamin B6 25 mg p.o. t.i.d. p.r.n. nausea vomiting was sent to the patient's pharmacy. Instructions given the patient to call or go to emergency room in case of vomiting. Discussed with the patient the finding on ultrasound including multiple myomas and its implication during increase in the risk of SAB, placental abnormalities, abnormal presentation, increase in the risk of , labor and delivery and PPROM, pain during with degenerated fibroids and others. In addition discussed with the patient the associated risks with AMA including but not limited to increase in the risk of hypertension gestational diabetes , others. The patient would like to have her care at [facility]. A List of [facility] OBGYN practices with the phone number was provided to the patient, she would like to call and set up an appointment for care. All questions answered, the patient verbalized understanding. Medications: New pyridoxine (vitamin B6) (Vitamin B-6) may take every 6 - 8 hours for nausea 25 mg PO tid 30 days PRN 90 tabs 3RF nausea Coding Level of Care Code Est Pt Level 3 (31544) Diagnoses Early stage of Z34.90
[2023-11-10 08:50] VITALS: BMI 28.6
== END 2023-11-10 15:10 | disposition home or self-care (01) ==
LOC: HO.HWS 08:46
PROVIDERS: Visit Provider Obstetrics & Gynecology
DX: Z34.90 Encounter for supervision of normal pregnancy, unspecified, unspecified trimester (principal)
CPT/HCPCS: 99213

== ENCOUNTER → 2023-11-10 08:46 | Outpatient (BNVA) | payer MEDICAID, OTHER, SELFPAY | PROVIDERS: Visit Provider Obstetrics & Gynecology | DX: O09.521 Supervision of elderly multigravida, first trimester (principal); O34.11 Maternal care for benign tumor of corpus uteri, first trimester; Z3A.00 Weeks of gestation of pregnancy not specified | CPT/HCPCS: 99212 ==